=== PATIENT | female | born 1990 | race Caucasian/White ===

== ENCOUNTER 2016-08-13 13:23 | Emergency (ER) | payer SELFPAY ==
[2016-08-13] MEDS ORDERED: Sodium Chloride 0.9% 1,000 ML IV ONE (14:11)
--- NOTE | 2016-08-13 14:12 | EDM.PDOC ---
ED HPI GENERAL MEDICAL PROBLEM - General Chief Complaint: COMMUNITY MARKETING MANAGER Problem Stated Complaint: CRAMPS Time Seen by Provider: 08/13/16 14:09 Source of Information: Reports: Patient History Limitations: Reports: No limitations - History of Present Illness INITIAL COMMENTS - FREE TEXT/NARRATIVE: History of present illness: [26-year-old female comes in complaining of abdominal cramping and excessive vaginal bleeding she is unable to indicate whether she is certain of any potential or if this is just an unusually large and painful menstrual cycle. Patient indicates she did have pelvic last month and has been bleeding since but she she received no results from her pelvic either by phone or in the mail she indicates.] Review of systems: As per history of present illness and below otherwise all systems reviewed and negative. Past medical history: As per history of present illness and as reviewed below otherwise noncontributory. Surgical history: As per history of present illness and as reviewed below otherwise noncontributory. Social history: No reported history of drug or alcohol abuse. Family history: As per history of present illness and as reviewed below otherwise noncontributory. Physical exam: HEENT: Atraumatic, normocephalic, pupils reactive, negative for conjunctival pallor or scleral icterus, mucous membranes moist, throat clear, neck supple, nontender, trachea midline. Lungs: Clear to auscultation, breath sounds equal bilaterally, chest nontender. Heart: S1S2, regular, negative for clicks, rubs, or JVD. Abdomen: Soft, nondistended, nontender. Negative for masses or hepatosplenomegaly. Negative for costovertebral tenderness. Pelvis: Stable nontender. Genitourinary: Deferred. Rectal: Deferred. Extremities: Atraumatic, negative for cords or calf pain. Neurovascular unremarkable. Neuro: Awake, alert, oriented. Cranial nerves II through XII unremarkable. Cerebellum unremarkable. Motor and sensory unremarkable throughout. Exam nonfocal. Diagnostics: [CBC, CMP, hCG] Therapeutics: [IV fluid, ] Impression: [dysfunctional uterine bleeding] Plan: [followup with COMMUNITY MARKETING MANAGER] Definitive disposition and diagnosis as appropriate pending reevaluation and review of above. 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 Social & Family History - Family History Family Medical History: Noncontributory - Tobacco Use Smoking Status *Q: Current Every Day Smoker Years of Tobacco use: 2 Packs/Tins Daily: 0.5 - Caffeine Use Caffeine Use: Reports: None - Recreational Drug Use Recreational Drug Use: No ED ROS GENERAL - Review of Systems Review Of Systems: See Below (See history of present illness) ED EXAM, GENERAL - Physical Exam Exam: See Below Course - Vital Signs Last Recorded V/S: Last Vital Signs Temp Pulse 76 08/13/16 16:36 Resp 16 08/13/16 16:36 BP 133/75 08/13/16 16:36 Pulse Ox 100 08/13/16 16:36 - Orders/Labs/Meds Labs: Laboratory Tests 08/13/16 08/13/16 08/13/16 Range/Units 14:12 14:12 14:12 WBC 8.40 (4.0-11.0) K/uL RBC 4.50 (4.30-5.90) M/uL Hgb 13.1 (12.0-16.0) g/dL Hct 39.5 (36.0-46.0) % MCV 87.8 (80.0-98.0) fL MCH 29.1 (27.0-32.0) pg MCHC 33.2 (31.0-37.0) g/dL RDW Std Deviation 42.2 (28.0-62.0) fl RDW Coeff of Carmen 13 (11.0-15.0) % Plt Count 263 (150-400) K/uL MPV 9.30 (7.40-12.00) fL Neut % (Auto) 79.4 (48.0-80.0) % Lymph % (Auto) 11.7 L (16.0-40.0) % [place] % (Auto) 6.7 (0.0-15.0) % Eos % (Auto) 1.1 (0.0-7.0) % Baso % (Auto) 1.1 (0.0-1.5) % Neut # (Auto) 6.7 H (1.4-5.7) K/uL Lymph # (Auto) 1.0 (0.6-2.4) K/uL [place] # (Auto) 0.6 (0.0-0.8) K/uL Eos # (Auto) 0.1 (0.0-0.7) K/uL Baso # (Auto) 0.1 (0.0-0.1) K/uL Nucleated RBC % 0.0 /100WBC Nucleated RBCs # 0 K/uL Free T4 0.90 (0.7-1.48) ng/dL Thyroxine (T4) 5.90 (4.87-11.72) ug/dL TSH 3rd Generation 0.72 (0.47-5.0) uIU/mL HCG, Quant < 1.2 mIU/mL Urine Color Urine Appearance Urine pH (5.0-8.0) Ur Specific [place] (1.001-1.035) Urine Protein (NEGATIVE) mg/dL Urine Glucose (UA) (NEGATIVE) mg/dL Urine Ketones (NEGATIVE) mg/dL Urine Occult Blood (NEGATIVE) Urine Nitrite (NEGATIVE) Urine Bilirubin (NEGATIVE) Urine Urobilinogen (<2.0) EU/dL Ur Leukocyte Esterase (NEGATIVE) Urine RBC (0-2/HPF) Urine WBC (0-5/HPF) Ur Epithelial Cells (NONE-FEW) Urine Bacteria (NEGATIVE) 08/13/16 Range/Units 14:42 WBC (4.0-11.0) K/uL RBC (4.30-5.90) M/uL Hgb (12.0-16.0) g/dL Hct (36.0-46.0) % MCV (80.0-98.0) fL MCH (27.0-32.0) pg MCHC (31.0-37.0) g/dL RDW Std Deviation (28.0-62.0) fl RDW Coeff of Carmen (11.0-15.0) % Plt Count (150-400) K/uL MPV (7.40-12.00) fL Neut % (Auto) (48.0-80.0) % Lymph % (Auto) (16.0-40.0) % [place] % (Auto) (0.0-15.0) % Eos % (Auto) (0.0-7.0) % Baso % (Auto) (0.0-1.5) % Neut # (Auto) (1.4-5.7) K/uL Lymph # (Auto) (0.6-2.4) K/uL [place] # (Auto) (0.0-0.8) K/uL Eos # (Auto) (0.0-0.7) K/uL Baso # (Auto) (0.0-0.1) K/uL Nucleated RBC % /100WBC Nucleated RBCs # K/uL Free T4 (0.7-1.48) ng/dL Thyroxine (T4) (4.87-11.72) ug/dL TSH 3rd Generation (0.47-5.0) uIU/mL HCG, Quant mIU/mL Urine Color YELLOW Urine Appearance SLT CLOUDY Urine pH 6.5 (5.0-8.0) Ur Specific [place] 1.020 (1.001-1.035) Urine Protein NEGATIVE (NEGATIVE) mg/dL Urine Glucose (UA) NEGATIVE (NEGATIVE) mg/dL Urine Ketones NEGATIVE (NEGATIVE) mg/dL Urine Occult Blood LARGE H (NEGATIVE) Urine Nitrite NEGATIVE (NEGATIVE) Urine Bilirubin NEGATIVE (NEGATIVE) Urine Urobilinogen 0.2 (<2.0) EU/dL Ur Leukocyte Esterase NEGATIVE (NEGATIVE) Urine RBC 50-60 (0-2/HPF) Urine WBC 0-2 (0-5/HPF) Ur Epithelial Cells FEW (NONE-FEW) Urine Bacteria FEW (NEGATIVE) Meds: Medications Discontinued Medications Generic Name Dose Route Start Last Admin Trade Name Freq PRN Reason Stop Dose Admin Sodium Chloride 1,000 mls @ 999 mls/hr 08/13/16 14:11 08/13/16 14:23 Normal Saline IV 08/13/16 15:11 999 mls/hr STAT ONE Administration Ketorolac Tromethamine 30 mg 08/13/16 15:53 08/13/16 15:58 Toradol IVPUSH 08/13/16 15:54 30 mg ONETIME ONE Administration Morphine Sulfate 2 mg 08/13/16 16:27 08/13/16 16:33 Morphine IV 08/13/16 16:28 2 mg ONETIME ONE Administration Ondansetron HCl 8 mg 08/13/16 15:53 08/13/16 16:00 Zofran IVPUSH 08/13/16 15:54 8 mg ONETIME ONE Administration Departure - Departure Time of Disposition: 17:45 Disposition: Home, Self-Care 01 Condition: good Clinical Impression: Uterine bleeding, dysfunctional Forms: ED Department Discharge Additional Instructions: The following information is given to patients seen in the emergency department who are being discharged to home. This information is to outline your options for follow-up care. We provide all patients seen in our emergency department with a follow-up referral. The need for follow-up, as well as the timing and circumstances, are variable depending upon the specifics of your emergency department visit. If you don't have a primary care physician on staff, we will provide you with a referral. We always advise you to contact your personal physician following an emergency department visit to inform them of the circumstance of the visit and for follow-up with them and/or the need for any referrals to a consulting specialist. The emergency department will also refer you to a specialist when appropriate. This referral assures that you have the opportunity for follow-up care with a specialist. All of these measure are taken in an effort to provide you with optimal care, which includes your follow-up. Under all circumstances we always encourage you to contact your private physician who remains a resource for coordinating your care. When calling for follow-up care, please make the office aware that this follow-up is from your recent emergency room visit. If for any reason you are refused follow-up, please contact the [facility] Emergency Department at and asked to speak to the emergency department charge nurse. to be given the brief run of pain medicine to help you through this cycle It is important to followup with COMMUNITY MARKETING MANAGER to help regulate your flow and to monitor any sort of cycling and or attempt at Followup with ED as needed as discussed
[2016-08-13] MEDS ORDERED: Ondansetron 4 MG/2 ML SDV IVPUSH ONE (15:53)
[2016-08-13] MEDS ORDERED: Ketorolac 30 MG/ML SDV IVPUSH ONE (15:53)
[2016-08-13] MEDS ORDERED: Morphine 10 MG/ML Syringe IV ONE (16:27)
--- NOTE | 2016-08-13 17:07 | US ---
EXAM DATE: 08/13/16 PATIENT'S AGE: 26 Patient: LETICIA CANTOR Facility: [place], [place] Site . Site : 1990 Study: US Pelvis [id number]/[id number] 4:41:22 PM Ordering Physician: Doctor Martin Final Report: INDICATION: Pelvic pain. Dysfunctional bleeding. TECHNIQUE: Ultrasound pelvis transvaginal for better assessment or to better visualize the endometrium. Real-time sonographic images with spectral and color Doppler imaging of the ovaries were obtained. COMPARISON: None. FINDINGS: Uterus measures 7 x 4.4 x 3.3 cm. Uterus is homogeneous in echotexture. Endometrial stripe measures 3 mm. No evidence of endometrial mass or fluid. Right ovary is 2.2 x 2.5 x 2 cm and is within normal limits. Normal-appearing color Doppler flow in the right ovary. Left ovary is 2.6 x 1.4 x 2.3 cm and is within normal limits. Normal-appearing color Doppler flow in the left ovary. Trace pelvic free fluid. IMPRESSION: Unremarkable pelvic ultrasound. Dictated by Elvis Rob MD @ 08/13/2016 4:51:55 PM Dictated by: Elvis Rob MD @ 08/13/2016 16:52:06 (Electronic Signature) Report Signed by Proxy. ANTHONY
[2016-08-13 18:15] VITALS: BP 121/83
== END 2016-08-13 17:49 | disposition home or self-care (01) ==
LOC: MW.ED 13:23
DX: N93.8 Other specified abnormal uterine and vaginal bleeding (principal); E03.9 Hypothyroidism, unspecified; F17.210 Nicotine dependence, cigarettes, uncomplicated; Z98.890 Other specified postprocedural states
CPT/HCPCS: 36415; 76830; 81001; 84436; 84439; 84443; 84702; 85025; 96361; 96374; 96375; 99284; J1885; J2270; J2405; J7040

== ENCOUNTER 2017-06-20 12:32 | Inpatient (IN) | payer BC, MEDICAID ==
--- NOTE | 2017-06-20 13:35 | PCM.LDHP ---
L&D History of Present Illness - General Date of Service: 06/20/17 Admit Problem/Dx: Admission Diagnosis/Problem Admission Diagnosis/Problem 06/20/17 13:33 27yo EDC 06/18/2017 40 2/7 wks, IOL for post dates. A+, RI, GBS neg Source of Information: Patient History Limitations: Reports: No Limitations - History of Present Illness Improves with: Reports: None Worsens with: Reports: None Associated Symptoms: Reports: N - Related Data Allergies/Adverse Reactions: Allergies Allergy/AdvReac Type Severity Reaction Status Date / Time No Known Allergies Allergy Verified 08/13/16 13:45 Home Medications: Home Meds Levothyroxine 125 mcg PO ACBREAKFAST 05/26/15 [History] Past Medical History - Past Health History Medical/Surgical History: Denies Medical/Surgical History Endocrine/Metabolic History: Reports: Hypothyroidism - Infectious Disease History Infectious Disease History: Reports: Chicken Pox - Past Surgical History Female Surgical History: Reports: Other (See Below) Social & Family History - Family History Family Medical History: Noncontributory - Tobacco Use Smoking Status *Q: Current Every Day Smoker Years of Tobacco use: 2 Packs/Tins Daily: 0.5 - Caffeine Use Caffeine Use: Reports: None - Recreational Drug Use Recreational Drug Use: No H&P Review of Systems - Review of Systems: Review Of Systems: See Below General: Reports: No Symptoms HEENT: Reports: No Symptoms Pulmonary: Reports: No Symptoms Cardiovascular: Reports: No Symptoms Gastrointestinal: Reports: No Symptoms Genitourinary: Reports: No Symptoms Musculoskeletal: Reports: No Symptoms Skin: Reports: No Symptoms Psychiatric: Reports: No Symptoms Neurological: Reports: No Symptoms Hematologic/Lymphatic: Reports: No Symptoms Immunologic: Reports: No Symptoms L&D Exam - Exam Exam: See Below - Vital Signs Weight: 102.512 kg - OB Specific Contraction Intensity: Mild to Moderate Movement: Active Heart Tones: Present Heart Tones per Min: 145 Heart Rate (FHR) Variability: Moderate (6-25 bmp) Presentation: Vertex - Rivera Score Rivera Score Cervix Position: Posterior Rivera Score Consistency: Soft Rivera Score Effacement: >80% Rivera Score Dilation: 1-2 cm Rivera Score 's Station: -3 Rievra Score Total: 6 - Exam General: Alert, Oriented, Cooperative HEENT: Hearing Intact Lungs: Clear to Auscultation Cardiovascular: Regular Rate, Regular Rhythm, Normal S1, Normal S2 GI/Abdominal Exam: Soft, Non-Tender (gravid) Rectal Exam: Deferred Genitourinary: Cervical dilitation Back Exam: Full Range of Motion Extremities: Normal Range of Motion, Non-Tender, No Pedal Edema, Normal Capillary Refill Skin: Warm, Dry, Intact Neurological: Reflexes Equal Bilateral, Normal Speech, Normal Tone Psychiatric: Alert, Normal Affect, Normal Mood - Problem List (1) Supervision of normal IUP (intrauterine ) in primigravida SNOMED Code(s): 04771909, 565292581, 534427173 ICD Code: Z34.00 - ENCNTR FOR SUPRVSN OF NORMAL FIRST , UNSP TRIMESTER Status: Acute Current Visit: Yes Qualifiers: Trimester: third trimester Qualified Code(s): Z34.03 - Encounter for supervision of normal first , third trimester Problem List Initiated/Reviewed/Updated: Yes Assessment/Plan Comment:: A: 27yo EDC 06/18/2017 40 2/7 wks, IOL for post dates. A+, RI, GBS neg. / -3 post spotting and possible SROM P: Admit, amnisure to check for SROM, Cytotec to pitocin, epidrual prn, anticipate , Dr Ames updated
[2017-06-20] MEDS ORDERED: Sodium Chloride 0.9% 2.5 ML Syringe FLUSH PRN (14:50)
[2017-06-20] MEDS ORDERED: Misoprostol 200 MCG Tab PO PRN (14:50)
[2017-06-20] MEDS ORDERED: Nalbuphine 10 MG/1 ML Vial IVPUSH PRN (14:50)
[2017-06-20] MEDS ORDERED: Water For Irrigation,Sterile 1,000 ML Container IRR PRN (14:50)
[2017-06-20] MEDS ORDERED: Sodium Chloride 0.9% 10 ML Syringe FLUSH PRN (14:50)
[2017-06-20] MEDS ORDERED: Methylergonovine 0.2 MG/1 ML Amp IM PRN (14:50)
[2017-06-20] MEDS ORDERED: Carboprost Tromethamine 250 MCG/1 ML Amp IM PRN (14:50)
[2017-06-20] MEDS ORDERED: Tranexamic Acid 1,000 MG in Sodium Chloride 0.9% 100 ML IV PRN (14:50)
[2017-06-20] MEDS ORDERED: Lidocaine 1% 50 ML MDV INJECT PRN (14:50)
[2017-06-20] MEDS ORDERED: Misoprostol 25 MCG (1/4 of 100 MCG) Tab VAG PRN (14:57)
[2017-06-20] MEDS ORDERED: Terbutaline 1 MG/ML SDV SUBCUT PRN (14:57)
[2017-06-20] MEDS ORDERED: Misoprostol 25 MCG (1/4 of 100 MCG) Tab VAG SCH (15:00)
[2017-06-20] MEDS ORDERED: Oxytocin/0.9 % Sodium Chloride 30 UNIT/500 ML BAG IV SCH ×2 (15:00)
[2017-06-20] MEDS ORDERED: Misoprostol 25 MCG (1/4 of 100 MCG) Tab PO SCH (15:00)
[2017-06-20] MEDS: Lactated Ringers 1,000 ML IV SCH ×2 (20:18→21:06)
--- NOTE | 2017-06-20 21:05 | PCM.PREANE ---
Preanesthetic Assessment - Anesthesia/Transfusion/Family Hx Anesthesia History: No Prior Anesthesia Family History of Anesthesia Reaction: No Transfusion History: No Prior Transfusion(s) - Review of Systems General: No Symptoms Pulmonary: No Symptoms Cardiovascular: No Symptoms Gastrointestinal: No Symptoms Neurological: No Symptoms Other: Reports: None - Physical Assessment Height: 5 ft 8.5 in Weight: 102.512 kg ASA Class: 2 Mental Status: Alert & Oriented x3 Airway Class: Mallampati = 2 Dentition: Reports: Normal Dentition Thyro-Mental Finger Breadths: 3 Mouth Opening Finger Breadths: 3 ROM/Head Extension: Full Lungs: Clear to Auscultation, Normal Respiratory Effort Cardiovascular: Regular Rate, Regular Rhythm - Lab Values: Laboratory Last Values WBC 8.17 K/uL (4.0-11.0) 06/20/17 15:05 RBC 4.23 M/uL (4.30-5.90) L 06/20/17 15:05 Hgb 11.9 g/dL (12.0-16.0) L 06/20/17 15:05 Hct 35.1 % (36.0-46.0) L 06/20/17 15:05 MCV 83.0 fL (80.0-98.0) 06/20/17 15:05 MCH 28.1 pg (27.0-32.0) 06/20/17 15:05 MCHC 33.9 g/dL (31.0-37.0) 06/20/17 15:05 RDW Std Deviation 43.0 fl (28.0-62.0) 06/20/17 15:05 RDW Coeff of Carmen 14 % (11.0-15.0) 06/20/17 15:05 Plt Count 233 K/uL (150-400) 06/20/17 15:05 MPV 9.10 fL (7.40-12.00) 06/20/17 15:05 Nucleated RBC % 0.0 /100WBC 06/20/17 15:05 Nucleated RBCs # 0 K/uL 06/20/17 15:05 Membrane Rupture NEGATIVE 06/20/17 13:00 Blood Type A POSITIVE 06/20/17 15:05 Antibody Screen NEGATIVE 06/20/17 15:05 - Allergies Allergies/Adverse Reactions: Allergies Allergy/AdvReac Type Severity Reaction Status Date / Time No Known Allergies Allergy Verified 08/13/16 13:45 - Blood Blood Available: Yes - Acknowledgements Anesthesia Type Planned: Epidural Pt an Appropriate Candidate for the Planned Anesthesia: Yes Alternatives and Risks of Anesthesia Discussed w Pt/Guardian: Yes Pt/Guardian Understands and Agrees with Anesthesia Plan: Yes PreAnesthesia Questionnaire - Past Health History Medical/Surgical History: Denies Medical/Surgical History HEENT History: Reports: None Cardiovascular History: Reports: None Respiratory History: Reports: None Gastrointestinal History: Reports: GERD Genitourinary History: Reports: None INTEGRATED LOGISTICS SUPPORT MANAGER History: Reports: : 1 Para: 0 LMP (Approximate): Musculoskeletal History: Reports: None Neurological History: Reports: None Psychiatric History: Reports: None Endocrine/Metabolic History: Reports: Hypothyroidism, Obesity/BMI 30+ Hematologic History: Reports: None Immunologic History: Reports: None Oncologic (Cancer) History: Reports: None Dermatologic History: Reports: None - Infectious Disease History Infectious Disease History: Reports: Chicken Pox - Past Surgical History Female Surgical History: Reports: Other (See Below) - Past Imaging History Past Imaging History: Reports: None - SUBSTANCE USE Smoking Status *Q: Current Every Day Smoker Tobacco Use Within Last Twelve Months: Cigarettes Recreational Drug Use History: No - HOME MEDS Home Medications: Home Meds Levothyroxine 125 mcg PO ACBREAKFAST 05/26/15 [History] - CURRENT (IN HOUSE) MEDS Current Meds: Current Medications Carboprost Tromethamine (Hemabate Ds) 250 mcg IM ASDIRECTED PRN PRN Reason: Post Hemorrhage Tranexamic Acid 1,000 mg/ (Sodium Chloride) 110 mls @ 660 mls/hr IV ONETIME PRN PRN Reason: Bleeding Lactated Ringer's (Ringers, Lactated) 1,000 mls @ 150 mls/hr IV ASDIRECTED KADE Last Admin: 06/20/17 20:18 Dose: 150 mls/hr Oxytocin/Sodium Chloride (Oxytocin 30 Unit/500 Ml-Ns) 30 unit in 500 mls @ 999 mls/hr IV TITRATE KADE Oxytocin/Sodium Chloride (Oxytocin 30 Unit/500 Ml-Ns) 30 unit in 500 mls @ 2 mls/hr IV TITRATE KADE; 2 MUNITS/MIN PRN Reason: Protocol Last Admin: 06/20/17 20:18 Dose: 2 munits/min, 2 mls/hr Lidocaine HCl (Xylocaine 1%) 50 ml INJECT .ONCE PRN PRN Reason: Laceration repair Methylergonovine Maleate (Methergine) 0.2 mg IM ASDIRECTED PRN PRN Reason: Post Hemorrhage Misoprostol (Cytotec) 200 mcg PO .ONCE PRN PRN Reason: Post Hemorrhage Misoprostol (Cytotec) 25 mcg PO Q4H KADE Last Admin: 06/20/17 15:30 Dose: 25 mcg Misoprostol (Cytotec) 25 mcg VAG .ONCE KADE Last Admin: 06/20/17 15:30 Dose: 25 mcg Misoprostol (Cytotec) 25 mcg VAG Q4H PRN PRN Reason: Cervical Ripening Nalbuphine HCl (Nubain) 10 mg IVPUSH Q1H PRN PRN Reason: Pain (severe 7-10) Last Admin: 06/20/17 19:53 Dose: 10 mg Sodium Chloride (Saline Flush) 10 ml FLUSH ASDIRECTED PRN PRN Reason: Keep Vein Open Sodium Chloride (Saline Flush) 2.5 ml FLUSH ASDIRECTED PRN PRN Reason: Keep Vein Open Sterile Water (Sterile Water For Irrigation) 1,000 ml IRR ASDIRECTED PRN PRN Reason: delivery Terbutaline Sulfate (Brethine) 0.25 mg SUBCUT ASDIRECTED PRN PRN Reason: Tacysystole
[2017-06-21] MEDS ORDERED: Ondansetron 4 MG/2 ML SDV IVPUSH PRN (03:30)
[2017-06-21] MEDS ORDERED: Ondansetron 4 MG/2 ML SDV ONE (03:33)
[2017-06-21] MEDS ORDERED: Oxytocin 10 Units/1 ML SDV ONE (03:52)
[2017-06-21] MEDS ORDERED: Ibuprofen 400 MG Tab PO PRN (04:27)
[2017-06-21] MEDS ORDERED: Bisacodyl 10 MG Supp RECTAL PRN (04:27)
[2017-06-21] MEDS ORDERED: Lanolin 100% Cream 7 GM Tube TOP PRN (04:27)
[2017-06-21] MEDS ORDERED: Docusate Sodium 100 MG Cap PO PRN (04:27)
[2017-06-21] MEDS ORDERED: Witch Hazel Medicated Pads 40/Jar TOP PRN (04:27)
[2017-06-21] MEDS ORDERED: oxyCODONE 5 MG Tab PO PRN (04:27)
[2017-06-21] MEDS ORDERED: Acetaminophen 500 MG Tab PO PRN (04:27)
[2017-06-21] MEDS ORDERED: Benzocaine/Menthol 20%-0.5% Spray 78 GM Cannister TOP PRN (04:27)
--- NOTE | 2017-06-21 04:45 | PCM.DEL ---
L & D Note - General Info Date of Service: 06/21/17 Mother's Due Date: 06/18/17 - Delivery Note Labor: Spontaneous Cervical Ripening Method: Misoprostil, Oxytocin Delivery Outcome: Livebirth Infant Delivery Method: Spontaneous Vaginal Delivery-Single Presentation: Vertex Nuchal Cord: Present Anesthesia Type: Epidural Amniotic Fluid Description: Meconium Stained Episiotomy Type: None Laceration: Labial (upper right labial lac, repaired with 4-0 mono) Suture type: Other Suture size: 4-0 Placenta: Intact, Spontaneous Cord: 3 Vessels Estimated Blood Loss: 100 Resuscitation Needed: No [place]: Suctioned, Bulb Syringe, Stimulated (O2 blow by), Warmer Used Score 1 min: 7 Score 5 min: 8 Second Stage Interventions: Reports: Pushing, Pulls Own Legs Back Delivery Comments (Free Text/Narrative):: viable female over intact perineum. Head delivered with great pushing, nuchle x1 reduced over head, shoulders and body followed easily. Infant to mothers abdomen with RN at for evaluation. Cord clamped and cut and infant to the warmer. spont cry, pink. Pitocin to IVF, Cord blood collected. Placenta delivered grossly intact. Bimanual WNL, Inspection noted right side labial lac that was repaired with a 4-0 mono. EBL 100cc, APGARS 7/8, Wt: 8lb 4oz , mom and baby left in stable condition for recovery Induction Criteria - Rivera Score Rivera Score Dilation: 1-2 cm Rivera Score Effacement: >80% Rivera Score 's Station: -3 Rivera Score Consistency: Soft Rivera Score Cervix Position: Posterior Rivera Score Total: 6 Rivera Score Presenting Part: Reports: Cephalic - Induction Gestational Age >/= 39 wks: Yes Medical Indication: post dates Estimated Pelvis: Reports: Adequate Reassuring Monitoring Strip: Yes Absence of Tachy Systole: Yes - General Info Admission Dx/Problem (Free Text): Admission Diagnosis/Problem Admission Diagnosis/Problem 06/20/17 13:33 27yo EDC 06/18/2017 40 2/7 wks, IOL for post dates. A+, RI, GBS neg Functional Status: Reports: Pain Controlled - Review of Systems General: Reports: No Symptoms HEENT: Reports: No Symptoms Pulmonary: Reports: No Symptoms Cardiovascular: Reports: No Symptoms Gastrointestinal: Reports: No Symptoms Genitourinary: Reports: No Symptoms Musculoskeletal: Reports: No Symptoms Skin: Reports: No Symptoms Neurological: Reports: No Symptoms Psychiatric: Reports: No Symptoms - Patient Data Weight - Most Recent: 102.512 kg Lab Results Last 24 Hours: Laboratory Results - last 24 hr 06/20/17 06/20/17 06/20/17 Range/Units 13:00 15:05 15:05 WBC 8.17 (4.0-11.0) K/uL RBC 4.23 L (4.30-5.90) M/uL Hgb 11.9 L (12.0-16.0) g/dL Hct 35.1 L (36.0-46.0) % MCV 83.0 (80.0-98.0) fL MCH 28.1 (27.0-32.0) pg MCHC 33.9 (31.0-37.0) g/dL RDW Std Deviation 43.0 (28.0-62.0) fl RDW Coeff of Carmen 14 (11.0-15.0) % Plt Count 233 (150-400) K/uL MPV 9.10 (7.40-12.00) fL Nucleated RBC % 0.0 /100WBC Nucleated RBCs # 0 K/uL Membrane Rupture NEGATIVE Blood Type A POSITIVE Antibody Screen NEGATIVE Med Orders - Current: Current Medications Acetaminophen (Tylenol Extra Strength) 500 mg PO Q4H PRN PRN Reason: Pain Acetaminophen (Tylenol Extra Strength) 1,000 mg PO Q4H PRN PRN Reason: Pain Benzocaine/Menthol (Dermoplast Pain Relief 20%-0.5% [place]) 78 gm TOP ASDIRECTED PRN PRN Reason: Perineal Comfort Measure Bisacodyl (Dulcolax) 10 mg RECTAL .ONCE PRN PRN Reason: Constipation Docusate Sodium (Colace) 100 mg PO BID PRN PRN Reason: Constipation Emollient Ointment (Lansinoh Hpa) 0 gm TOP ASDIRECTED PRN PRN Reason: Sore Nipples Ibuprofen (Motrin) 400 mg PO Q4H PRN PRN Reason: Pain Ibuprofen (Motrin) 800 mg PO Q6H PRN PRN Reason: Pain Oxycodone HCl (Oxycodone) 5 mg PO Q2H PRN PRN Reason: Pain Witch Yodit (Tucks) 1 pad TOP ASDIRECTED PRN PRN Reason: comfort care Discontinued Medications Carboprost Tromethamine (Hemabate Ds) 250 mcg IM ASDIRECTED PRN PRN Reason: Post Hemorrhage Tranexamic Acid 1,000 mg/ (Sodium Chloride) 110 mls @ 660 mls/hr IV ONETIME PRN PRN Reason: Bleeding Lactated Ringer's (Ringers, Lactated) 1,000 mls @ 150 mls/hr IV ASDIRECTED KADE Last Admin: 06/20/17 21:06 Dose: 999 mls/hr Oxytocin/Sodium Chloride (Oxytocin 30 Unit/500 Ml-Ns) 30 unit in 500 mls @ 999 mls/hr IV TITRATE KADE Oxytocin/Sodium Chloride (Oxytocin 30 Unit/500 Ml-Ns) 30 unit in 500 mls @ 2 mls/hr IV TITRATE KADE; 2 MUNITS/MIN PRN Reason: Protocol Last Titration: 06/20/17 22:22 Dose: 0 munits/min, 0 mls/hr Fentanyl/Bupivacaine HCl (Dsnjbmuk-Nvoqz-Yg 2 Mcg/Ml-0.125%) Confirm Administered Dose 100 mls @ as directed EP .STK-MED ONE Stop: 06/20/17 21:07 Fentanyl/Bupivacaine HCl (Itxkazbn-Rvzlz-Nw 2 Mcg/Ml-0.125%) Confirm Administered Dose 100 mls @ as directed EP .STK-MED ONE Stop: 06/21/17 03:22 Lidocaine HCl (Xylocaine 1%) 50 ml INJECT .ONCE PRN PRN Reason: Laceration repair Methylergonovine Maleate (Methergine) 0.2 mg IM ASDIRECTED PRN PRN Reason: Post Hemorrhage Misoprostol (Cytotec) 200 mcg PO .ONCE PRN PRN Reason: Post Hemorrhage Misoprostol (Cytotec) 25 mcg PO Q4H KADE Last Admin: 06/20/17 15:30 Dose: 25 mcg Misoprostol (Cytotec) 25 mcg VAG .ONCE KADE Last Admin: 06/20/17 15:30 Dose: 25 mcg Misoprostol (Cytotec) 25 mcg VAG Q4H PRN PRN Reason: Cervical Ripening Nalbuphine HCl (Nubain) 10 mg IVPUSH Q1H PRN PRN Reason: Pain (severe 7-10) Last Admin: 06/20/17 19:53 Dose: 10 mg Ondansetron HCl (Zofran) 4 mg IVPUSH Q4H PRN PRN Reason: Nausea Ondansetron HCl (Zofran) Confirm Administered Dose 4 mg .ROUTE .STK-MED ONE Stop: 06/21/17 03:34 Oxytocin (Pitocin) Confirm Administered Dose 30 unit .ROUTE .STK-MED ONE Stop: 06/21/17 03:53 Sodium Chloride (Saline Flush) 10 ml FLUSH ASDIRECTED PRN PRN Reason: Keep Vein Open Sodium Chloride (Saline Flush) 2.5 ml FLUSH ASDIRECTED PRN PRN Reason: Keep Vein Open Sterile Water (Sterile Water For Irrigation) 1,000 ml IRR ASDIRECTED PRN PRN Reason: delivery Terbutaline Sulfate (Brethine) 0.25 mg SUBCUT ASDIRECTED PRN PRN Reason: Tacysystole - Exam General: Alert, Oriented, Cooperative, No Acute Distress Lungs: Normal Respiratory Effort GI/Abdominal Exam: Soft, Non-Tender (Female) Exam: Normal External Exam, Normal Bimanual Exam, Vaginal Bleeding, Vaginal Tears Back Exam: Full Range of Motion Extremities: Normal Range of Motion, Non-Tender, No Pedal Edema, Normal Capillary Refill Skin: Warm, Dry, Intact Wound/Incisions: Healing Well Neurological: No New Focal Deficit, Normal Speech, Normal Tone Psy/Mental Status: Alert, Normal Affect, Normal Mood - Problem List & Annotations (1) Supervision of normal IUP (intrauterine ) in primigravida SNOMED Code(s): 38356822, 031359967, 949789120 Code(s): Z34.00 - ENCNTR FOR SUPRVSN OF NORMAL FIRST , UNSP TRIMESTER Status: Acute Current Visit: Yes Qualifiers: Trimester: third trimester Qualified Code(s): Z34.03 - Encounter for supervision of normal first , third trimester (2) (normal spontaneous vaginal delivery) SNOMED Code(s): 16777986 Code(s): O80 - ENCOUNTER FOR FULL-TERM UNCOMPLICATED DELIVERY Status: Acute Priority: High Current Visit: Yes - Problem List Review Problem List Initiated/Reviewed/Updated: Yes - My Orders Last 24 Hours: My Active Orders 06/20/17 14:50 Heart Tones [RC] CONTINUOUS Non Stress Test [RC] PER UNIT ROUTINE Vaginal Exam [RC] PRN Vital Signs [RC] PER UNIT ROUTINE 06/20/17 15:04 Oxygen Therapy [RC] ASDIRECTED Vaginal Exam [RC] PRN Vital Signs [RC] PER UNIT ROUTINE 06/21/17 04:27 May Shower [RC] ASDIRECTED Up ad Ciara [RC] ASDIRECTED Vital Signs [RC] PER UNIT ROUTINE Acetaminophen [Tylenol Extra Strength] 1,000 mg PO Q4H PRN Acetaminophen [Tylenol Extra Strength] 500 mg PO Q4H PRN Benzocaine/Menthol [Dermoplast Pain Relief 20%-0.5% [place]] 78 gm TOP ASDIRECTED PRN Bisacodyl [Dulcolax] 10 mg RECTAL .ONCE PRN Docusate Sodium [Colace] 100 mg PO BID PRN Ibuprofen [Motrin] 400 mg PO Q4H PRN Ibuprofen [Motrin] 800 mg PO Q6H PRN Lanolin [Lansinoh HPA] See Dose Instructions TOP ASDIRECTED PRN Witch Yodit [Tucks] 1 pad TOP ASDIRECTED PRN oxyCODONE 5 mg PO Q2H PRN Assess Lochia [WOMSER] Per Unit Routine Assess Uterine Involution [WOMSER] Per Unit Routine Peripheral IV Discontinue [OM.PC] Routine Resuscitation Status Routine 06/21/17 04:28 Patient Status [ADT] Routine 06/21/17 Breakfast Regular Diet [DIET] - Plan Plan:: A: 27yo EDC 06/18/2017 40 2/7 wks, IOL for post dates. A+, RI, GBS neg. / -3 post spotting and possible SROM P: Admit, amnisure to check for SROM, Cytotec to pitocin, epidrual prn, anticipate , Dr Ames updated Delivered A: of viable female, APGARS 7/8, Wt: 8lb 4oz, EBL 100cc, Rt lab lac with repair. Mother and baby bonding well. P: Routine pp plan of care.
--- NOTE | 2017-06-21 09:06 | PCM48HPAN ---
Post Anesthesia Note - EVALUATION WITHIN 48HRS OF ANESTHETIC Vital Signs in Normal Range: Yes Patient Participated in Evaluation: Yes Respiratory Function Stable: Yes Airway Patent: Yes Cardiovascular Function Stable: Yes Hydration Status Stable: Yes Pain Control Satisfactory: Yes Nausea and Vomiting Control Satisfactory: Yes Mental Status Recovered: Yes Resp Rate: 18
[2017-06-21] MEDS: Ibuprofen 800 MG Tab PO PRN ×2 (10:19→16:00)
[2017-06-21] MEDS: Acetaminophen 500 MG Tab PO PRN (15:06)
[2017-06-22] MEDS: Ibuprofen 800 MG Tab PO PRN ×2 (02:52→09:47)
--- NOTE | 2017-06-22 08:29 | PCM.DCSUM1 ---
Discharge Summary - Hospital Course Free Text/Narrative:: Discharge home with infant. Follow up in 6 weeks or sooner if needed. - Discharge Data Discharge Date: 06/22/17 Discharge Disposition: Home, Self-Care 01 Condition: Good - Discharge Diagnosis/Problem(s) (1) Supervision of normal IUP (intrauterine ) in primigravida SNOMED Code(s): 04063970, 608431546, 311768579 ICD Code: Z34.00 - ENCNTR FOR SUPRVSN OF NORMAL FIRST , UNSP TRIMESTER Status: Acute Current Visit: Yes Qualifiers: Trimester: third trimester Qualified Code(s): Z34.03 - Encounter for supervision of normal first , third trimester (2) (normal spontaneous vaginal delivery) SNOMED Code(s): 48533962 ICD Code: O80 - ENCOUNTER FOR FULL-TERM UNCOMPLICATED DELIVERY Status: Acute Priority: High Current Visit: Yes - Patient Instructions Diet: Usual Diet as Tolerated Activity: As Tolerated, No Strenuous Activities, Rest and Relax Today Driving: May Drive Today Showering/Bathing: May Shower Notify Provider of: Fever, Increased Pain, Swelling and Redness, Nausea and/or Vomiting - Discharge Plan Home Medications: Home Meds Levothyroxine 125 mcg PO ACBREAKFAST 05/26/15 [History] - General Info Date of Service: 06/22/17 Admission Dx/Problem (Free Text: Admission Diagnosis/Problem Admission Diagnosis/Problem 06/20/17 13:33 27yo EDC 06/18/2017 40 2/7 wks, IOL for post dates. A+, RI, GBS neg Functional Status: Reports: Pain Controlled, Tolerating Diet, Ambulating, Urinating - Review of Systems General: Reports: No Symptoms HEENT: Reports: No Symptoms Pulmonary: Reports: No Symptoms Cardiovascular: Reports: No Symptoms Gastrointestinal: Reports: No Symptoms Genitourinary: Reports: No Symptoms Musculoskeletal: Reports: No Symptoms Skin: Reports: No Symptoms Neurological: Reports: No Symptoms Psychiatric: Reports: No Symptoms - Patient Data Vitals - Most Recent: Last Vital Signs Temp 36.4 C 06/22/17 05:45 Pulse 84 06/22/17 05:45 Resp 16 06/22/17 05:45 BP 115/66 06/22/17 05:45 Pulse Ox 98 06/22/17 05:45 Weight - Most Recent: 102.512 kg Med Orders - Current: Current Medications Acetaminophen (Tylenol Extra Strength) 500 mg PO Q4H PRN PRN Reason: Pain Last Admin: 06/21/17 20:28 Dose: 500 mg Acetaminophen (Tylenol Extra Strength) 1,000 mg PO Q4H PRN PRN Reason: Pain Last Admin: 06/21/17 15:06 Dose: 1,000 mg Benzocaine/Menthol (Dermoplast Pain Relief 20%-0.5% [place]) 78 gm TOP ASDIRECTED PRN PRN Reason: Perineal Comfort Measure Last Admin: 06/21/17 15:08 Dose: 1 can Bisacodyl (Dulcolax) 10 mg RECTAL .ONCE PRN PRN Reason: Constipation Docusate Sodium (Colace) 100 mg PO BID PRN PRN Reason: Constipation Last Admin: 06/21/17 15:06 Dose: 100 mg Emollient Ointment (Lansinoh Hpa) 0 gm TOP ASDIRECTED PRN PRN Reason: Sore Nipples Last Admin: 06/21/17 10:20 Dose: 1 gm Ibuprofen (Motrin) 400 mg PO Q4H PRN PRN Reason: Pain Ibuprofen (Motrin) 800 mg PO Q6H PRN PRN Reason: Pain Last Admin: 06/22/17 02:52 Dose: 800 mg Oxycodone HCl (Oxycodone) 5 mg PO Q2H PRN PRN Reason: Pain Last Admin: 06/21/17 12:41 Dose: 5 mg Witch Yodit (Tucks) 1 pad TOP ASDIRECTED PRN PRN Reason: comfort care Last Admin: 06/21/17 10:21 Dose: 1 pad Discontinued Medications Carboprost Tromethamine (Hemabate Ds) 250 mcg IM ASDIRECTED PRN PRN Reason: Post Hemorrhage Tranexamic Acid 1,000 mg/ (Sodium Chloride) 110 mls @ 660 mls/hr IV ONETIME PRN PRN Reason: Bleeding Lactated Ringer's (Ringers, Lactated) 1,000 mls @ 150 mls/hr IV ASDIRECTED KADE Last Admin: 06/20/17 21:06 Dose: 999 mls/hr Oxytocin/Sodium Chloride (Oxytocin 30 Unit/500 Ml-Ns) 30 unit in 500 mls @ 999 mls/hr IV TITRATE KADE Oxytocin/Sodium Chloride (Oxytocin 30 Unit/500 Ml-Ns) 30 unit in 500 mls @ 2 mls/hr IV TITRATE KADE; 2 MUNITS/MIN PRN Reason: Protocol Last Titration: 06/21/17 04:04 Dose: 999 munits/min, 999 mls/hr Fentanyl/Bupivacaine HCl (Qtsezcia-Hmjcp-Hd 2 Mcg/Ml-0.125%) Confirm Administered Dose 100 mls @ as directed EP .STK-MED ONE Stop: 06/20/17 21:07 Fentanyl/Bupivacaine HCl (Zubjeijc-Nyhft-By 2 Mcg/Ml-0.125%) Confirm Administered Dose 100 mls @ as directed EP .STK-MED ONE Stop: 06/21/17 03:22 Lidocaine HCl (Xylocaine 1%) 50 ml INJECT .ONCE PRN PRN Reason: Laceration repair Methylergonovine Maleate (Methergine) 0.2 mg IM ASDIRECTED PRN PRN Reason: Post Hemorrhage Misoprostol (Cytotec) 200 mcg PO .ONCE PRN PRN Reason: Post Hemorrhage Misoprostol (Cytotec) 25 mcg PO Q4H KADE Last Admin: 06/20/17 15:30 Dose: 25 mcg Misoprostol (Cytotec) 25 mcg VAG .ONCE KADE Last Admin: 06/20/17 15:30 Dose: 25 mcg Misoprostol (Cytotec) 25 mcg VAG Q4H PRN PRN Reason: Cervical Ripening Nalbuphine HCl (Nubain) 10 mg IVPUSH Q1H PRN PRN Reason: Pain (severe 7-10) Last Admin: 06/20/17 19:53 Dose: 10 mg Ondansetron HCl (Zofran) 4 mg IVPUSH Q4H PRN PRN Reason: Nausea Last Admin: 06/21/17 03:35 Dose: 4 mg Ondansetron HCl (Zofran) Confirm Administered Dose 4 mg .ROUTE .STK-MED ONE Stop: 06/21/17 03:34 Oxytocin (Pitocin) Confirm Administered Dose 30 unit .ROUTE .STK-MED ONE Stop: 06/21/17 03:53 Sodium Chloride (Saline Flush) 10 ml FLUSH ASDIRECTED PRN PRN Reason: Keep Vein Open Sodium Chloride (Saline Flush) 2.5 ml FLUSH ASDIRECTED PRN PRN Reason: Keep Vein Open Sterile Water (Sterile Water For Irrigation) 1,000 ml IRR ASDIRECTED PRN PRN Reason: delivery Terbutaline Sulfate (Brethine) 0.25 mg SUBCUT ASDIRECTED PRN PRN Reason: Tacysystole - Exam General: Reports: Alert, Oriented, Cooperative, No Acute Distress Lungs: Reports: Normal Respiratory Effort GI/Abdominal Exam: Soft, Non-Tender (Female) Exam: Vaginal Bleeding Rectal (Female) Exam: Deferred Back Exam: Reports: Full Range of Motion Extremities: Normal Range of Motion, Non-Tender, No Pedal Edema, Normal Capillary Refill Skin: Reports: Warm, Dry, Intact Wound/Incisions: Reports: Healing Well Neurological: Reports: No New Focal Deficit, Normal Speech, Normal Tone Psy/Mental Status: Reports: Alert, Normal Affect, Normal Mood *Q Meaningful Use (DIS) - VTE *Q VTE Criteria *Q: - Stroke *Q Stroke Criteria *Q: - AMI *Q AMI Criteria *Q:
[2017-06-22] MEDS: Acetaminophen 500 MG Tab PO PRN (09:48)
[2017-06-22 14:37] VITALS: BP 117/66
== END 2017-06-22 10:30 | disposition home or self-care (01) | DRG 560 ==
LOC: MW.OBCHECK 12:32 → MW.OB 12:35 → MW.OBCHECK 14:50 → MW.OB 14:50 → OBSVTOIN 06-21 03:59
PROVIDERS: ADMIT Obstetrics & Gynecology; ATTEND Obstetrics & Gynecology
PROC: 10E0XZZ Delivery of Products of Conception, External Approach (ICD-10-PCS; principal; 2017-06-21)
PROC: 3E0P7VZ Introduction of Hormone into Female Reproductive, Via Natural or Artificial Opening (ICD-10-PCS; 2017-06-21)
PROC: 3E033VJ Introduction of Other Hormone into Peripheral Vein, Percutaneous Approach (ICD-10-PCS; 2017-06-21)
PROC: 0UQMXZZ Repair Vulva, External Approach (ICD-10-PCS; 2017-06-21)
PROC: 00HU33Z Insertion of Infusion Device into Spinal Canal, Percutaneous Approach (ICD-10-PCS; 2017-06-21)
PROC: 3E0R3BZ Introduction of Anesthetic Agent into Spinal Canal, Percutaneous Approach (ICD-10-PCS; 2017-06-21)
DX: O48.0 Post-term pregnancy (principal); O99.284 Endocrine, nutritional and metabolic diseases complicating childbirth; E03.9 Hypothyroidism, unspecified; O99.334 Smoking (tobacco) complicating childbirth; O70.0 First degree perineal laceration during delivery; O69.81X0 Labor and delivery complicated by cord around neck, without compression, not applicable or unspecified; F17.210 Nicotine dependence, cigarettes, uncomplicated; Z3A.40 40 weeks gestation of pregnancy; Z37.0 Single live birth; Z79.899 Other long term (current) drug therapy
CPT/HCPCS: 36415; 51702; 59025; 59409; 84112; 85027; 86850; 86900; 86901; A9270-GY; J2300; J2405; J2590; J7120

== ENCOUNTER 2018-06-20 06:28 | Emergency (ER) | payer BC ==
[2018-06-20 06:40] VITALS: BP 126/72
[2018-06-20] MEDS ORDERED: Lidocaine 2% Viscous Solution 15 ML Cup PO ONE (06:41)
[2018-06-20] MEDS ORDERED: Benzocaine 20% Topical Spray UD MUCMEM ONE (06:41)
--- NOTE | 2018-06-20 06:46 | EDM.PDOC ---
ED HPI GENERAL MEDICAL PROBLEM - General Chief Complaint: ENT Problem Stated Complaint: TOOTH PAIN Time Seen by Provider: 06/20/18 06:40 - History of Present Illness INITIAL COMMENTS - FREE TEXT/NARRATIVE: HISTORY AND PHYSICAL: History of present illness: The patient is a 28-year-old female who presents with complaints of pain to her right upper molar and swelling of the gum in this area. She has not had any nausea vomiting or diarrhea but has had generalized malaise and overall ill feeling. She's not had any facial swelling or swollen glands in her neck. She has no throat pain per se no runny nose no cough or chest pain. The patient had work done on this tooth in the past and she is not sure if that is the issue. She tells me that when she was younger she had many ear infections and she is "immune to amoxicillin". Review of systems: As per history of present illness and below otherwise all systems reviewed and negative. Past medical history: As per history of present illness and as reviewed below otherwise noncontributory. Surgical history: As per history of present illness and as reviewed below otherwise noncontributory. Social history: No reported history of drug or alcohol abuse. Family history: As per history of present illness and as reviewed below otherwise noncontributory. Physical exam: General: Well-developed well-nourished female who is nontoxic and vital signs are noted by me. There is no visible evidence of any facial swelling appreciated on the right side HEENT: Atraumatic, normocephalic, pupils reactive, negative for conjunctival pallor or scleral icterus, mucous membranes moist, throat clear, neck supple, nontender, trachea midline. There is no cervical adenopathy or nuchal rigidity. There is no gross dental disease appreciated and in the area of question at the right upper molar area there is some minimal swelling of the gum in this region without fluctuance and there is no gross tenderness with palpation of the tooth. Lungs: Clear to auscultation, breath sounds equal bilaterally, chest nontender. Heart: S1S2, regular and rhythm no overt Abdomen: Deferred Pelvis: Deferred Genitourinary: Deferred. Rectal: Deferred. Extremities: Atraumatic, full range of motion without deficits Neurovascular unremarkable. Neuro: Awake, alert, oriented. Cranial nerves II through XII unremarkable. Cerebellum unremarkable. Motor and sensory unremarkable throughout. Exam nonfocal. Diagnostics: [] Therapeutics: Dental balls Impression: Dental pain Definitive disposition and diagnosis as appropriate pending reevaluation and review of above. 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: Musculoskeletal History: Reports: None Neurological History: Reports: None Psychiatric History: Reports: None Endocrine/Metabolic History: Reports: Hypothyroidism, Obesity/BMI 30+ Hematologic History: Reports: None Immunologic History: Reports: None Oncologic (Cancer) History: Reports: None Dermatologic History: Reports: None - Infectious Disease History Infectious Disease History: Reports: Chicken Pox - Past Surgical History Female Surgical History: Reports: Other (See Below) - Past Imaging History Past Imaging History: Reports: None Social & Family History - Family History Family Medical History: Noncontributory - Caffeine Use Caffeine Use: Reports: None ED ROS GENERAL - Review of Systems Review Of Systems: ROS reveals no pertinent complaints other than HPI. ED EXAM, GENERAL - Physical Exam Exam: See Below (See dictation) Course - Vital Signs Last Recorded V/S: Last Vital Signs Temp 36.4 C 06/20/18 06:38 Pulse 98 06/20/18 06:38 Resp 18 06/20/18 06:38 BP 126/72 06/20/18 06:38 Pulse Ox 98 06/20/18 06:38 - Orders/Labs/Meds Orders: Active Orders 24 hr Category Date Time Status Benzocaine [Hurricaine One 20%] Med 06/20/18 06:41 Once 2 each MUCMEM ONETIME ONE Lidocaine 2% [Xylocaine 2% Viscous] Med 06/20/18 06:41 Once 15 ml PO ONETIME ONE Medication Orders Lidocaine HCl (Xylocaine 2% Viscous) 15 ml PO ONETIME ONE Stop: 06/20/18 06:42 Meds: Medications Generic Name Dose Route Start Last Admin Trade Name Tristian PRN Reason Stop Dose Admin Lidocaine HCl 15 ml 06/20/18 06:41 Xylocaine 2% Viscous PO 06/20/18 06:42 ONETIME ONE Departure - Departure Time of Disposition: 06:44 Disposition: Home, Self-Care 01 Condition: Good Clinical Impression: Pain, dental - Discharge Information Referrals: Shanell Begum [employer] OPERATOR [Primary Care Provider] - Additional Instructions: The following information is given to patients seen in the emergency department who are being discharged to home. This information is to outline your options for follow-up care. We provide all patients seen in our emergency department with a follow-up referral. The need for follow-up, as well as the timing and circumstances, are variable depending upon the specifics of your emergency department visit. If you don't have a primary care physician on staff, we will provide you with a referral. We always advise you to contact your personal physician following an emergency department visit to inform them of the circumstance of the visit and for follow-up with them and/or the need for any referrals to a consulting specialist. The emergency department will also refer you to a specialist when appropriate. This referral assures that you have the opportunity for followup care with a specialist. All of these measure are taken in an effort to provide you with optimal care, which includes your followup. Under all circumstances we always encourage you to contact your private physician who remains a resource for coordinating your care. When calling for followup care, please make the office aware that this follow-up is from your recent emergency room visit. If for any reason you are refused follow-up, please contact the [facility] emergency department at and ask to speak to the emergency department charge nurse. [facility] Primary care- [place] [address] Please follow-up with one of our local dentists using the resources you have been given today for follow-up care and definitive management of this tooth issue. Ice to face to reduce any swelling and use [id number] Tylenol and ibuprofen for pain fevers. Please take antibiotics as prescribed, clindamycin, that you have been given via [facility] . Use dental balls you have been given today in the ED for pain management as shown. Return to ER as needed and as discussed - My Orders Last 24 Hours: My Active Orders 06/20/18 06:41 Benzocaine [Hurricaine One 20%] 2 each MUCMEM ONETIME ONE Lidocaine 2% [Xylocaine 2% Viscous] 15 ml PO ONETIME ONE - Assessment/Plan Last 24 Hours: My Active Orders 06/20/18 06:41 Benzocaine [Hurricaine One 20%] 2 each MUCMEM ONETIME ONE Lidocaine 2% [Xylocaine 2% Viscous] 15 ml PO ONETIME ONE
== END 2018-06-20 06:55 | disposition home or self-care (01) ==
LOC: MW.ED 06:28
DX: K08.89 Other specified disorders of teeth and supporting structures (principal); E03.9 Hypothyroidism, unspecified
CPT/HCPCS: 99282; A9270

== ENCOUNTER 2018-11-17 22:16 | Emergency (ER) | payer BC ==
--- NOTE | 2018-11-17 23:16 | EDM.PDOC ---
<Prasanth Troncoso - Last Filed: 11/17/18 22:58> ED HPI GENERAL MEDICAL PROBLEM - General Chief Complaint: Respiratory Problem Stated Complaint: COUGH Time Seen by Provider: 11/17/18 23:25 - History of Present Illness INITIAL COMMENTS - FREE TEXT/NARRATIVE: HISTORY AND PHYSICAL: History of present illness: 28 year old 13 weeks and 5 days presents to the emergency department for the evaluation of a persistent cough. She has attempted to use OTC Tylenol cold & flu as well as Mucinex DM without relief. She reports her cough is dry and does not have increased mucous production. She reports occasional chills, she has not had any recent fever, sinus pressure or drainage. Her was treated for a cough approximately 10 days ago. Review of systems: As per history of present illness and below otherwise all systems reviewed and negative. Past medical history: As per history of present illness and as reviewed below otherwise noncontributory. Surgical history: As per history of present illness and as reviewed below otherwise noncontributory. Social history: No reported history of drug or alcohol abuse. Family history: As per history of present illness and as reviewed below otherwise noncontributory. Physical exam: Constitutional: Well developed well nourished non toxic appearing HEENT: Atraumatic, normocephalic, pupils reactive, negative for conjunctival pallor or scleral icterus, mucous membranes moist, throat clear, neck supple, nontender, trachea midline. Lungs: Clear to auscultation, breath sounds equal bilaterally, chest nontender. Heart: S1S2, regular, negative for clicks, rubs, or JVD. Abdomen: Soft, nondistended, nontender. Negative for masses or hepatosplenomegaly. Negative for costovertebral tenderness. Pelvis: Stable nontender. Genitourinary: Deferred. Rectal: Deferred. Extremities: Atraumatic, negative for cords or calf pain. Neurovascular unremarkable. Neuro: Awake, alert, oriented. Cranial nerves II through XII unremarkable. Cerebellum unremarkable. Motor and sensory unremarkable throughout. Exam nonfocal. Diagnostics: None Therapeutics: None Impression: Cough Plan: The patient will be prescribed a Ventolin inhaler & instructed to take OTC Robitussin per the manufacture instructions. She is to avoid second hand smoke. The plan of care was reviewed with the patient. She is in agreement to the treatment plan. Definitive disposition and diagnosis as appropriate pending reevaluation and review of above. chest Pain Score (Numeric/FACES): 5 - Related Data Allergies Allergy/AdvReac Type Severity Reaction Status Date / Time No Known Allergies Allergy Verified 11/17/18 22:19 Home Meds: Home Meds Levothyroxine 150 mcg PO ACBREAKFAST 05/26/15 [History] #103/Iron Fumarate/Fa [ ] 1 tab PO DAILY 11/17/18 [ History] Past Medical History - Past Health History Medical/Surgical History: Denies Medical/Surgical History HEENT History: Reports: Impaired Vision, Other (See Below) Other HEENT History: wears glasses Cardiovascular History: Reports: None Respiratory History: Reports: None Gastrointestinal History: Reports: GERD Genitourinary History: Reports: None 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: Musculoskeletal History: Reports: None Neurological History: Reports: None Psychiatric History: Reports: None Endocrine/Metabolic History: Reports: Hypothyroidism Hematologic History: Reports: None Immunologic History: Reports: None Oncologic (Cancer) History: Reports: None Dermatologic History: Reports: None - Infectious Disease History Infectious Disease History: Reports: Chicken Pox - Past Surgical History Female Surgical History: Reports: Other (See Below) - Past Imaging History Past Imaging History: Reports: None Social & Family History - Family History Family Medical History: Noncontributory - Tobacco Use Smoking Status *Q: Never Smoker - Caffeine Use Caffeine Use: Reports: None - Recreational Drug Use Recreational Drug Use: No Course - Vital Signs Last Recorded V/S: Last Vital Signs Temp 98 F 11/17/18 22:30 Pulse 98 11/17/18 22:30 Resp 18 11/17/18 22:30 BP 116/59 L 11/17/18 22:30 Pulse Ox 97 11/17/18 22:30 Departure - Departure Disposition: Home, Self-Care 01 Clinical Impression: Cough, URI (upper respiratory infection) - Discharge Information Referrals: PCP,None [Primary Care Provider] - Forms: ED Department Discharge Additional Instructions: The following information is given to patients seen in the emergency department who are being discharged to home. This information is to outline your options for follow-up care. We provide all patients seen in our emergency department with a follow-up referral. The need for follow-up, as well as the timing and circumstances, are variable depending upon the specifics of your emergency department visit. If you don't have a primary care physician on staff, we will provide you with a referral. We always advise you to contact your personal physician following an emergency department visit to inform them of the circumstance of the visit and for follow-up with them and/or the need for any referrals to a consulting specialist. The emergency department will also refer you to a specialist when appropriate. This referral assures that you have the opportunity for follow-up care with a specialist. All of these measure are taken in an effort to provide you with optimal care, which includes your follow-up. Under all circumstances we always encourage you to contact your private physician who remains a resource for coordinating your care. When calling for follow-up care, please make the office aware that this follow-up is from your recent emergency room visit. If for any reason you are refused follow-up, please contact the [facility] Emergency Department at and asked to speak to the emergency department charge nurse. [facility] [address] [place] [address] [place] [address] Use inhaler as instructed. 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 ED EXAM, GENERAL - Physical Exam Exam: See Below (see dictation) Departure - Departure Time of Disposition: 23:23 Condition: Good
[2018-11-17 23:51] VITALS: BP 109/62; PULSE 89
== END 2018-11-17 23:45 | disposition home or self-care (01) ==
LOC: MW.ED 22:16
DX: O99.511 Diseases of the respiratory system complicating pregnancy, first trimester (principal); J06.9 Acute upper respiratory infection, unspecified; O99.281 Endocrine, nutritional and metabolic diseases complicating pregnancy, first trimester; E03.9 Hypothyroidism, unspecified; Z79.899 Other long term (current) drug therapy; Z3A.13 13 weeks gestation of pregnancy
CPT/HCPCS: 99283

== ENCOUNTER 2019-05-19 00:07 | Inpatient (IN) | payer BC ==
[2019-05-19] MEDS ORDERED: Sodium Chloride 0.9% 2.5 ML Syringe FLUSH PRN (00:22)
[2019-05-19] MEDS ORDERED: Tranexamic Acid 1,000 MG in Sodium Chloride 0.9% 100 ML IV PRN (00:22)
[2019-05-19] MEDS ORDERED: Misoprostol 200 MCG Tab PO PRN (00:22)
[2019-05-19] MEDS ORDERED: Methylergonovine 0.2 MG/1 ML Amp IM PRN (00:22)
[2019-05-19] MEDS ORDERED: Ondansetron 4 MG/2 ML SDV IVPUSH PRN (00:22)
[2019-05-19] MEDS ORDERED: Butorphanol 1 MG/ML SDV IVPUSH PRN (00:22)
[2019-05-19] MEDS ORDERED: Nalbuphine 10 MG/1 ML Vial IVPUSH PRN (00:22)
[2019-05-19] MEDS ORDERED: Lidocaine 1% 50 ML MDV INJECT PRN (00:22)
[2019-05-19] MEDS ORDERED: Carboprost Tromethamine 250 MCG/1 ML Amp IM PRN (00:22)
[2019-05-19] MEDS ORDERED: Sodium Chloride 0.9% 10 ML SDV IV PRN (00:22)
[2019-05-19] MEDS ORDERED: Sodium Chloride 0.9% 10 ML Syringe FLUSH PRN (00:22)
[2019-05-19] MEDS ORDERED: Water For Irrigation,Sterile 1,000 ML Container IRR PRN (00:22)
[2019-05-19] MEDS ORDERED: Misoprostol 25 MCG (1/4 of 100 MCG) Tab VAG PRN (00:25)
[2019-05-19] MEDS ORDERED: Terbutaline 1 MG/ML SDV SUBCUT PRN (00:25)
[2019-05-19] MEDS ORDERED: Misoprostol 25 MCG (1/4 of 100 MCG) Tab PO ONE (00:27)
[2019-05-19] MEDS ORDERED: Oxytocin/0.9 % Sodium Chloride 30 UNIT/500 ML BAG IV SCH ×2 (00:30)
[2019-05-19] MEDS ORDERED: Lactated Ringers 1,000 ML IV SCH (00:30)
[2019-05-19] MEDS: Misoprostol 25 MCG (1/4 of 100 MCG) Tab VAG PRN ×2 (05:23→10:35)
--- NOTE | 2019-05-19 08:27 | PCM.LDHP ---
L&D History of Present Illness - General Date of Service: 05/19/19 Admit Problem/Dx: Patient Status Order with Admit Dx/Problem 05/19/19 00:22 Patient Status [ADT] Routine Admission Diagnosis/Problem Admission Diagnosis/Problem 05/19/19 08:22 29 yo presenting for IOL at 39 3/7 weeks gestation, RI, A+, GBS negative Source of Information: Patient History Limitations: Reports: No Limitations - History of Present Illness Improves with: Reports: None Worsens with: Reports: None Associated Symptoms: Reports: N - Related Data Allergies/Adverse Reactions: Allergies Allergy/AdvReac Type Severity Reaction Status Date / Time No Known Allergies Allergy Verified 11/17/18 22:19 Home Medications: Home Meds Levothyroxine 150 mcg PO ACBREAKFAST 05/26/15 [History] #103/Iron Fumarate/Fa [ ] 1 tab PO DAILY 11/17/18 [ History] Past Medical History - Past Health History Medical/Surgical History: Denies Medical/Surgical History HEENT History: Reports: Impaired Vision, Other (See Below) Other HEENT History: wears glasses Cardiovascular History: Reports: None Respiratory History: Reports: None Gastrointestinal History: Reports: None Genitourinary History: Reports: None 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: Musculoskeletal History: Reports: None Neurological History: Reports: Concussion, Headaches, Chronic, Migraines Psychiatric History: Reports: None Endocrine/Metabolic History: Reports: Hypothyroidism Hematologic History: Reports: None Immunologic History: Reports: None Oncologic (Cancer) History: Reports: None Dermatologic History: Reports: None - Infectious Disease History Infectious Disease History: Reports: Chicken Pox, Mononucleosis - Past Surgical History HEENT Surgical History: Reports: Other (See Below) Other HEENT Surgeries/Procedures: wisdom teeth extraction Cardiovascular Surgical History: Reports: None GI Surgical History: Reports: None Female Surgical History: Reports: Other (See Below) Other Female Surgeries/Procedures: lump removed form right breast - Past Imaging History Past Imaging History: Reports: None Social & Family History - Family History Family Medical History: Noncontributory HEENT: Reports: Glaucoma Cardiac: Reports: Heart Failure, Pacemaker, Stent Respiratory: Reports: COPD GI: Reports: None : Reports: None OBGYN: Reports: Musculoskeletal: Reports: Arthritis Neurological: Reports: CVA Psychiatric: Reports: Anxiety, Bipolar, Depression Endocrine/Metabolic: Reports: None Hematologic: Reports: None Immunologic: Reports: None Dermatologic: Reports: Psoriasis Oncologic: Reports: Breast, Other (See Below) Other Oncologic Family History: stomach - Tobacco Use Smoking Status *Q: Former Smoker Years of Tobacco use: 7 Used Tobacco, but Quit: Yes Month/Year Tobacco Last Used: 10/2018 Second Hand Smoke Exposure: No - Caffeine Use Caffeine Use: Reports: Coffee - Recreational Drug Use Recreational Drug Use: No H&P Review of Systems - Review of Systems: Review Of Systems: See Below General: Reports: No Symptoms HEENT: Reports: No Symptoms Pulmonary: Reports: No Symptoms Cardiovascular: Reports: No Symptoms Gastrointestinal: Reports: No Symptoms Genitourinary: Reports: No Symptoms Musculoskeletal: Reports: No Symptoms Skin: Reports: No Symptoms Psychiatric: Reports: No Symptoms Neurological: Reports: No Symptoms Hematologic/Lymphatic: Reports: No Symptoms Immunologic: Reports: No Symptoms L&D Exam - Exam Exam: See Below - Vital Signs Weight: 231 lb - OB Specific Contraction Intensity: Mild Movement: Active Heart Tones: Present Presentation: Vertex - Rivera Score Rivera Score Cervix Position: Posterior Rivera Score Consistency: Soft Rivera Score Effacement: 51-70% Rivera Score Dilation: 1-2 cm Rivera Score Infant's Station: -2 Rivera Score Total: 6 - Exam General: Alert, Oriented, Cooperative HEENT: Hearing Intact Lungs: Normal Respiratory Effort Rectal Exam: Deferred Genitourinary: No: Cervical fluid, Vaginal bleeding Back Exam: Full Range of Motion Extremities: Normal Range of Motion, No Pedal Edema Skin: Warm, Dry, Intact Neurological: Cranial Nerves Intact, Strength Equal Bilateral, Normal Gait, Normal Speech, Normal Tone, Sensation Intact Psychiatric: Alert, Normal Affect, Normal Mood - Patient Data Lab Results Last 24 hrs: Laboratory Results - last 24 hr 05/19/19 05/19/19 Range/Units 00:54 00:54 WBC 8.96 (4.0-11.0) K/uL RBC 3.85 L (4.30-5.90) M/uL Hgb 10.8 L (12.0-16.0) g/dL Hct 31.3 L (36.0-46.0) % MCV 81.3 (80.0-98.0) fL MCH 28.1 (27.0-32.0) pg MCHC 34.5 (31.0-37.0) g/dL RDW Std Deviation 41.6 (28.0-62.0) fl RDW Coeff of Carmen 14 (11.0-15.0) % Plt Count 244 (150-400) K/uL MPV 9.30 (7.40-12.00) fL Blood Type A POSITIVE Antibody Screen NEGATIVE Result Diagrams: 05/19/19 00:54 - Problem List (1) Supervision of normal IUP (intrauterine ) in multigravida SNOMED Code(s): 169180238, 884948835, 381369540 ICD Code: Z34.80 - ENCOUNTER FOR SUPRVSN OF NORMAL , UNSP TRIMESTER Status: Acute Priority: High Current Visit: Yes Qualifiers: Trimester: third trimester Qualified Code(s): Z34.83 - Encounter for supervision of other normal , third trimester Problem List Initiated/Reviewed/Updated: Yes Orders Last 24hrs: Active Orders 24 hr Category Date Time Status Patient Status [ADT] Routine ADT 05/19/19 00:22 Active Bedrest Bathroom Privileges [RC] ASDIRECTED Care 05/19/19 00:25 Active Communication Order [RC] ASDIRECTED Care 05/19/19 00:25 Active Communication Order [RC] ASDIRECTED Care 05/19/19 00:25 Active Communication Order [RC] ASDIRECTED Care 05/19/19 00:25 Active Heart Tones [RC] CONTINUOUS Care 05/19/19 00:22 Active Non Stress Test [RC] PER UNIT ROUTINE Care 05/19/19 00:22 Active May Shower [RC] ASDIRECTED Care 05/19/19 00:22 Active Notify Provider [RC] PRN Care 05/19/19 00:22 Active Notify Provider [RC] PRN Care 05/19/19 00:25 Active Notify Provider [RC] PRN Care 05/19/19 00:25 Active Notify Provider [RC] STAT Care 05/19/19 00:25 Active Up ad Ciara [RC] ASDIRECTED Care 05/19/19 00:22 Active Vaginal Exam [RC] PRN Care 05/19/19 00:22 Active Vaginal Exam [RC] PRN Care 05/19/19 00:25 Active Vital Signs [RC] PER UNIT ROUTINE Care 05/19/19 00:22 Active Vital Signs [RC] PER UNIT ROUTINE Care 05/19/19 00:25 Active Regular Diet [DIET] Diet 05/19/19 Breakfast Active RPR (SYPHILIS SERO) W/ RFLX [REF] Routine Lab 05/19/19 00:54 Received Butorphanol [Stadol] Med 05/19/19 00:22 Active 1 mg IVPUSH Q1H PRN Carboprost Tromethamine [Hemabate DS] Med 05/19/19 00:22 Active 250 mcg IM ASDIRECTED PRN Lactated Ringers [Ringers, Lactated] 1,000 ml Med 05/19/19 00:30 Active IV ASDIRECTED Lidocaine 1% [Xylocaine 1%] Med 05/19/19 00:22 Active 50 ml INJECT ONETIME PRN Methylergonovine [Methergine] Med 05/19/19 00:22 Active 0.2 mg IM ASDIRECTED PRN Nalbuphine [Nubain] Med 05/19/19 00:22 Active 10 mg IVPUSH Q1H PRN Ondansetron [Zofran] Med 05/19/19 00:22 Active 4 mg IVPUSH Q6H PRN Oxytocin/0.9 % Sodium Chloride [Oxytocin 30 Unit/500 ML Med 05/19/19 00:30 Active -NS] 30 unit in 500 ml IV TITRATE Oxytocin/0.9 % Sodium Chloride [Oxytocin 30 Unit/500 ML Med 05/19/19 00:30 Active -NS] 30 unit in 500 ml IV TITRATE Sodium Chloride 0.9% [Normal Saline] Med 05/19/19 00:22 Active 10 ml IV ASDIRECTED PRN Sodium Chloride 0.9% [Saline Flush] Med 05/19/19 00:22 Active 10 ml FLUSH ASDIRECTED PRN Sodium Chloride 0.9% [Saline Flush] Med 05/19/19 00:22 Active 2.5 ml FLUSH ASDIRECTED PRN Terbutaline [Brethine] Med 05/19/19 00:25 Active 0.25 mg SUBCUT ASDIRECTED PRN Tranexamic Acid [Cyklokapron] 1,000 mg Med 05/19/19 00:22 Active Sodium Chloride 0.9% [Normal Saline] 100 ml IV ONETIME Water For Irrigation,Sterile [Sterile Water for Med 05/19/19 00:22 Active Irrigation] 1,000 ml IRR ASDIRECTED PRN miSOPROStoL [Cytotec] Med 05/19/19 00:22 Active 200 mcg PO ONETIME PRN miSOPROStoL [Cytotec] Med 05/19/19 00:25 Active 25 mcg VAG ONETIME PRN miSOPROStoL [Cytotec] Med 05/19/19 00:25 Active 25 mcg VAG Q4H PRN Scalp Electrode [WOMSER] Per Unit Routine Oth 05/19/19 00:22 Ordered Medication Administration Instruction [OM.PC] Q3H Oth 05/19/19 00:30 Ordered Peripheral IV Insertion Adult [OM.PC] Routine Oth 05/19/19 00:22 Ordered Resuscitation Status Routine Resus Stat 05/19/19 00:22 Ordered Medication Orders Butorphanol Tartrate (Stadol) 1 mg IVPUSH Q1H PRN PRN Reason: Pain Carboprost Tromethamine (Hemabate Ds) 250 mcg IM ASDIRECTED PRN PRN Reason: Post Hemorrhage Lactated Ringer's (Ringers, Lactated) 1,000 mls @ 150 mls/hr IV ASDIRECTED KADE Oxytocin/Sodium Chloride (Oxytocin 30 Unit/500 Ml-Ns) 30 unit in 500 mls @ 500 mls/hr IV TITRATE KADE Tranexamic Acid 1,000 mg/ (Sodium Chloride) 110 mls @ 660 mls/hr IV ONETIME PRN PRN Reason: Bleeding Oxytocin/Sodium Chloride (Oxytocin 30 Unit/500 Ml-Ns) 30 unit in 500 mls @ 2 mls/hr IV TITRATE KADE; Protocol Lidocaine HCl (Xylocaine 1%) 50 ml INJECT ONETIME PRN PRN Reason: Laceration repair Methylergonovine Maleate (Methergine) 0.2 mg IM ASDIRECTED PRN PRN Reason: Post Hemorrhage Misoprostol (Cytotec) 200 mcg PO ONETIME PRN PRN Reason: Post Hemorrhage Misoprostol (Cytotec) 25 mcg VAG ONETIME PRN PRN Reason: Cervical Ripening Last Admin: 05/19/19 01:15 Dose: 25 mcg Misoprostol (Cytotec) 25 mcg VAG Q4H PRN PRN Reason: Cervical Ripening Last Admin: 05/19/19 05:23 Dose: 25 mcg Nalbuphine HCl (Nubain) 10 mg IVPUSH Q1H PRN PRN Reason: Pain (severe 7-10) Ondansetron HCl (Zofran) 4 mg IVPUSH Q6H PRN PRN Reason: Nausea/Vomiting Sodium Chloride (Saline Flush) 10 ml FLUSH ASDIRECTED PRN PRN Reason: Keep Vein Open Sodium Chloride (Saline Flush) 2.5 ml FLUSH ASDIRECTED PRN PRN Reason: Keep Vein Open Sodium Chloride (Normal Saline) 10 ml IV ASDIRECTED PRN PRN Reason: IV Use Sterile Water (Sterile Water For Irrigation) 1,000 ml IRR ASDIRECTED PRN PRN Reason: delivery Terbutaline Sulfate (Brethine) 0.25 mg SUBCUT ASDIRECTED PRN PRN Reason: Tacysystole Assessment/Plan Comment:: IOL A: 29 yo presenting for IOL at 39 3/7 weeks gestation, RI, A+, GBS negative , up and walking with P: Admit, cytotec to pitocin, epidural PRN, anticipate , Dr. Ames updated.
[2019-05-19] MEDS ORDERED: Misoprostol 25 MCG (1/4 of 100 MCG) Tab PO SCH (10:30)
[2019-05-19] MEDS ORDERED: fentaNYL 100 MCG/2 ML SDV ONE (15:28)
[2019-05-19] MEDS ORDERED: Ropivacaine HCl/PF 100 ML ONE (15:28)
--- NOTE | 2019-05-19 15:48 | PCM.PREANE ---
Preanesthetic Assessment - Anesthesia/Transfusion/Family Hx Anesthesia History: Prior Anesthesia Without Reaction Family History of Anesthesia Reaction: No Transfusion History: No Prior Transfusion(s) - Physical Assessment NPO Status Date: 05/19/19 NPO Status Time: 13:00 Height: 1.75 m Weight: 104.78 kg ASA Class: 1 - Lab Values: Laboratory Last Values WBC 8.96 K/uL (4.0-11.0) 05/19/19 00:54 RBC 3.85 M/uL (4.30-5.90) L 05/19/19 00:54 Hgb 10.8 g/dL (12.0-16.0) L 05/19/19 00:54 Hct 31.3 % (36.0-46.0) L 05/19/19 00:54 MCV 81.3 fL (80.0-98.0) 05/19/19 00:54 MCH 28.1 pg (27.0-32.0) 05/19/19 00:54 MCHC 34.5 g/dL (31.0-37.0) 05/19/19 00:54 RDW Std Deviation 41.6 fl (28.0-62.0) 05/19/19 00:54 RDW Coeff of Carmen 14 % (11.0-15.0) 05/19/19 00:54 Plt Count 244 K/uL (150-400) 05/19/19 00:54 MPV 9.30 fL (7.40-12.00) 02 00:54 Blood Type A POSITIVE 05/19/19 00:54 Antibody Screen NEGATIVE 05/19/19 00:54 - Allergies Allergies/Adverse Reactions: Allergies Allergy/AdvReac Type Severity Reaction Status Date / Time No Known Allergies Allergy Verified 11/17/18 22:19 - Acknowledgements Anesthesia Type Planned: Epidural Pt an Appropriate Candidate for the Planned Anesthesia: Yes Alternatives and Risks of Anesthesia Discussed w Pt/Guardian: Yes Pt/Guardian Understands and Agrees with Anesthesia Plan: Yes PreAnesthesia Questionnaire - Past Health History Medical/Surgical History: Denies Medical/Surgical History HEENT History: Reports: Impaired Vision, Other (See Below) Other HEENT History: wears glasses Cardiovascular History: Reports: None Respiratory History: Reports: None Gastrointestinal History: Reports: None Genitourinary History: Reports: None 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: Musculoskeletal History: Reports: None Neurological History: Reports: Concussion, Headaches, Chronic, Migraines Psychiatric History: Reports: None Endocrine/Metabolic History: Reports: Hypothyroidism Hematologic History: Reports: None Immunologic History: Reports: None Oncologic (Cancer) History: Reports: None Dermatologic History: Reports: None - Infectious Disease History Infectious Disease History: Reports: Chicken Pox, Mononucleosis - Past Surgical History HEENT Surgical History: Reports: Other (See Below) Other HEENT Surgeries/Procedures: wisdom teeth extraction Cardiovascular Surgical History: Reports: None GI Surgical History: Reports: None Female Surgical History: Reports: Other (See Below) Other Female Surgeries/Procedures: lump removed form right breast - Past Imaging History Past Imaging History: Reports: None - SUBSTANCE USE Smoking Status *Q: Former Smoker Tobacco Use Within Last Twelve Months: Cigarettes Second Hand Smoke Exposure: No Recreational Drug Use History: No - HOME MEDS Home Medications: Home Meds Levothyroxine 150 mcg PO ACBREAKFAST 05/26/15 [History] #103/Iron Fumarate/Fa [ ] 1 tab PO DAILY 11/17/18 [ History] - CURRENT (IN HOUSE) MEDS Current Meds: Current Medications Butorphanol Tartrate (Stadol) 1 mg IVPUSH Q1H PRN PRN Reason: Pain Carboprost Tromethamine (Hemabate Ds) 250 mcg IM ASDIRECTED PRN PRN Reason: Post Hemorrhage Lactated Ringer's (Ringers, Lactated) 1,000 mls @ 150 mls/hr IV ASDIRECTED KADE Last Admin: 05/19/19 14:26 Dose: 999 mls/hr Oxytocin/Sodium Chloride (Oxytocin 30 Unit/500 Ml-Ns) 30 unit in 500 mls @ 500 mls/hr IV TITRATE KADE Tranexamic Acid 1,000 mg/ (Sodium Chloride) 110 mls @ 660 mls/hr IV ONETIME PRN PRN Reason: Bleeding Oxytocin/Sodium Chloride (Oxytocin 30 Unit/500 Ml-Ns) 30 unit in 500 mls @ 2 mls/hr IV TITRATE KADE; Protocol Lidocaine HCl (Xylocaine 1%) 50 ml INJECT ONETIME PRN PRN Reason: Laceration repair Methylergonovine Maleate (Methergine) 0.2 mg IM ASDIRECTED PRN PRN Reason: Post Hemorrhage Misoprostol (Cytotec) 200 mcg PO ONETIME PRN PRN Reason: Post Hemorrhage Misoprostol (Cytotec) 25 mcg VAG ONETIME PRN PRN Reason: Cervical Ripening Last Admin: 05/19/19 01:15 Dose: 25 mcg Misoprostol (Cytotec) 25 mcg VAG Q4H PRN PRN Reason: Cervical Ripening Last Admin: 05/19/19 10:35 Dose: 25 mcg Misoprostol (Cytotec) 25 mcg PO Q4H KADE Last Admin: 05/19/19 10:34 Dose: 25 mcg Nalbuphine HCl (Nubain) 10 mg IVPUSH Q1H PRN PRN Reason: Pain (severe 7-10) Ondansetron HCl (Zofran) 4 mg IVPUSH Q6H PRN PRN Reason: Nausea/Vomiting Sodium Chloride (Saline Flush) 10 ml FLUSH ASDIRECTED PRN PRN Reason: Keep Vein Open Sodium Chloride (Saline Flush) 2.5 ml FLUSH ASDIRECTED PRN PRN Reason: Keep Vein Open Sodium Chloride (Normal Saline) 10 ml IV ASDIRECTED PRN PRN Reason: IV Use Sterile Water (Sterile Water For Irrigation) 1,000 ml IRR ASDIRECTED PRN PRN Reason: delivery Terbutaline Sulfate (Brethine) 0.25 mg SUBCUT ASDIRECTED PRN PRN Reason: Tacysystole Discontinued Medications Fentanyl (Sublimaze) Confirm Administered Dose 100 mcg .ROUTE .STK-MED ONE Stop: 05/19/19 15:29 Ropivacaine (Naropin 0.2%) Confirm Administered Dose 100 mls @ as directed .ROUTE .STK-MED ONE Stop: 05/19/19 15:29 Misoprostol (Cytotec) 25 mcg PO ONETIME ONE Stop: 05/19/19 00:28 Last Admin: 05/19/19 01:18 Dose: 25 mcg
--- NOTE | 2019-05-19 15:51 | PCM.PRNOTE ---
- Free Text/Narrative Note: Anes Note Patietn requestsw epidural for L&D> Sitting position, Level L3-L4 midline approach. Sterile technique Chloraprep scrub to lumbar area. Sterile fenestrated drape applied. Epidural space easily achieved single attempt using CLAUDIA technique. CLAUDIA at 3 cm. Cath threaded 5 cm with ease. Cath secured at 9 cm at skin using sterile clear adhesive dressing. 1544 Test 3 cc 1.5% lido with epi negative. 1546 Load 10 cc 0.2% ropivicaine with 1 mcg cc fentayl in slow divided doses. 1551 Pump started with 90 cc same solution at 8 cc hr with 6 cc q 20 mi prn bolus. Efrain well. 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
[2019-05-19] MEDS ORDERED: Lanolin 100% Cream 7 GM Tube TOP PRN (17:00)
[2019-05-19] MEDS ORDERED: Docusate Sodium 100 MG Cap PO PRN (17:00)
[2019-05-19] MEDS ORDERED: Ibuprofen 400 MG Tab PO PRN (17:00)
[2019-05-19] MEDS ORDERED: oxyCODONE 5 MG Tab PO PRN (17:00)
[2019-05-19] MEDS ORDERED: Benzocaine/Menthol 20%-0.5% Spray 78 GM Cannister TOP PRN (17:00)
[2019-05-19] MEDS ORDERED: Bisacodyl 10 MG Supp RECTAL PRN (17:00)
[2019-05-19] MEDS ORDERED: Acetaminophen 500 MG Tab PO PRN ×2 (17:00)
--- NOTE | 2019-05-19 17:10 | PCM.DEL ---
L & D Note - General Info Date of Service: 05/19/19 - Delivery Note Cervical Ripening Method: Misoprostil Delivery Outcome: Livebirth Delivery Method: Spontaneous Vaginal Delivery-Single Delivery Mode: Spontaneous Presentation: Vertex Nuchal Cord: None Anesthesia Type: Epidural Episiotomy Type: None Laceration: None Placenta: Intact, Spontaneous Cord: 3 Vessels Estimated Blood Loss: 150 Resuscitation Needed: No Second Stage Interventions: Reports: Encouragement Given, Pushing Effectively, Pushing, Pulls Own Legs Back Delivery Comments (Free Text/Narrative):: viable male, head delivered with good pushing, shoulders and body followed easily after, baby to mom's abdomen skin to skin, cord cut by father of the baby after cessation of pulsing, APGARS 8/9, weight pending, placenta delivered grossly intact, 3VC, EBL 150mL, intact perineum, mom and baby left in stable condition with nurse at bedside for evaluation - General Info Date of Service: 05/19/19 Admission Dx/Problem (Free Text): Patient Status Order with Admit Dx/Problem 05/19/19 00:22 Patient Status [ADT] Routine Admission Diagnosis/Problem Admission Diagnosis/Problem 05/19/19 08:22 29 yo presenting for IOL at 39 3/7 weeks gestation, RI, A+, GBS negative Functional Status: Reports: Pain Controlled - Review of Systems General: Reports: No Symptoms HEENT: Reports: No Symptoms Pulmonary: Reports: No Symptoms Cardiovascular: Reports: No Symptoms Gastrointestinal: Reports: No Symptoms Genitourinary: Reports: No Symptoms Musculoskeletal: Reports: No Symptoms Skin: Reports: No Symptoms Neurological: Reports: No Symptoms Psychiatric: Reports: No Symptoms - Patient Data Weight - Most Recent: 231 lb Lab Results Last 24 Hours: Laboratory Results - last 24 hr 05/19/19 05/19/19 Range/Units 00:54 00:54 WBC 8.96 (4.0-11.0) K/uL RBC 3.85 L (4.30-5.90) M/uL Hgb 10.8 L (12.0-16.0) g/dL Hct 31.3 L (36.0-46.0) % MCV 81.3 (80.0-98.0) fL MCH 28.1 (27.0-32.0) pg MCHC 34.5 (31.0-37.0) g/dL RDW Std Deviation 41.6 (28.0-62.0) fl RDW Coeff of Carmen 14 (11.0-15.0) % Plt Count 244 (150-400) K/uL MPV 9.30 (7.40-12.00) fL Blood Type A POSITIVE Antibody Screen NEGATIVE Med Orders - Current: Current Medications Butorphanol Tartrate (Stadol) 1 mg IVPUSH Q1H PRN PRN Reason: Pain Carboprost Tromethamine (Hemabate Ds) 250 mcg IM ASDIRECTED PRN PRN Reason: Post Hemorrhage Lactated Ringer's (Ringers, Lactated) 1,000 mls @ 150 mls/hr IV ASDIRECTED KADE Last Admin: 05/19/19 14:26 Dose: 999 mls/hr Oxytocin/Sodium Chloride (Oxytocin 30 Unit/500 Ml-Ns) 30 unit in 500 mls @ 500 mls/hr IV TITRATE KADE Tranexamic Acid 1,000 mg/ (Sodium Chloride) 110 mls @ 660 mls/hr IV ONETIME PRN PRN Reason: Bleeding Oxytocin/Sodium Chloride (Oxytocin 30 Unit/500 Ml-Ns) 30 unit in 500 mls @ 2 mls/hr IV TITRATE KADE; Protocol Lidocaine HCl (Xylocaine 1%) 50 ml INJECT ONETIME PRN PRN Reason: Laceration repair Methylergonovine Maleate (Methergine) 0.2 mg IM ASDIRECTED PRN PRN Reason: Post Hemorrhage Misoprostol (Cytotec) 200 mcg PO ONETIME PRN PRN Reason: Post Hemorrhage Misoprostol (Cytotec) 25 mcg VAG ONETIME PRN PRN Reason: Cervical Ripening Last Admin: 05/19/19 01:15 Dose: 25 mcg Misoprostol (Cytotec) 25 mcg VAG Q4H PRN PRN Reason: Cervical Ripening Last Admin: 05/19/19 10:35 Dose: 25 mcg Misoprostol (Cytotec) 25 mcg PO Q4H KADE Last Admin: 05/19/19 10:34 Dose: 25 mcg Nalbuphine HCl (Nubain) 10 mg IVPUSH Q1H PRN PRN Reason: Pain (severe 7-10) Ondansetron HCl (Zofran) 4 mg IVPUSH Q6H PRN PRN Reason: Nausea/Vomiting Sodium Chloride (Saline Flush) 10 ml FLUSH ASDIRECTED PRN PRN Reason: Keep Vein Open Sodium Chloride (Saline Flush) 2.5 ml FLUSH ASDIRECTED PRN PRN Reason: Keep Vein Open Sodium Chloride (Normal Saline) 10 ml IV ASDIRECTED PRN PRN Reason: IV Use Sterile Water (Sterile Water For Irrigation) 1,000 ml IRR ASDIRECTED PRN PRN Reason: delivery Terbutaline Sulfate (Brethine) 0.25 mg SUBCUT ASDIRECTED PRN PRN Reason: Tacysystole Discontinued Medications Fentanyl (Sublimaze) Confirm Administered Dose 100 mcg .ROUTE .STK-MED ONE Stop: 05/19/19 15:29 Ropivacaine (Naropin 0.2%) Confirm Administered Dose 100 mls @ as directed .ROUTE .STK-MED ONE Stop: 05/19/19 15:29 Misoprostol (Cytotec) 25 mcg PO ONETIME ONE Stop: 05/19/19 00:28 Last Admin: 05/19/19 01:18 Dose: 25 mcg - Exam General: Alert, Oriented, Cooperative, No Acute Distress Lungs: Normal Respiratory Effort GI/Abdominal Exam: Soft, Non-Tender (Female) Exam: Normal External Exam Back Exam: Full Range of Motion Extremities: Non-Tender, No Pedal Edema Skin: Warm, Dry, Intact Neurological: No New Focal Deficit, Normal Speech Psy/Mental Status: Alert, Normal Affect, Normal Mood - Problem List & Annotations (1) Supervision of normal IUP (intrauterine ) in multigravida SNOMED Code(s): 549657542, 084986841, 211040249 Code(s): Z34.80 - ENCOUNTER FOR SUPRVSN OF NORMAL , UNSP TRIMESTER Status: Acute Priority: High Current Visit: Yes Qualifiers: Trimester: third trimester Qualified Code(s): Z34.83 - Encounter for supervision of other normal , third trimester (2) (normal spontaneous vaginal delivery) SNOMED Code(s): 57959074, 968424352 Code(s): O80 - ENCOUNTER FOR FULL-TERM UNCOMPLICATED DELIVERY Status: Acute Priority: High Current Visit: Yes - Problem List Review Problem List Initiated/Reviewed/Updated: Yes - My Orders Last 24 Hours: My Active Orders 05/19/19 17:00 Patient Status [ADT] Routine May Shower [RC] ASDIRECTED Up ad Ciara [RC] ASDIRECTED Vital Signs [RC] PER UNIT ROUTINE Acetaminophen [Tylenol Extra Strength] 1,000 mg PO Q4H PRN Acetaminophen [Tylenol Extra Strength] 500 mg PO Q4H PRN Benzocaine/Menthol [Dermoplast Pain Relief 20%-0.5% [place]] 78 gm TOP ASDIRECTED PRN Docusate Sodium [Colace] 100 mg PO BID PRN Ibuprofen [Motrin] 400 mg PO Q4H PRN Ibuprofen [Motrin] 800 mg PO Q6H PRN Lanolin [Lansinoh HPA] See Dose Instructions TOP ASDIRECTED PRN Witch Yodit [Tucks] 1 pad TOP ASDIRECTED PRN bisacodyL [Dulcolax] 10 mg RECTAL ONETIME PRN oxyCODONE 5 mg PO Q2H PRN Assess Lochia [WOMSER] Per Unit Routine Assess Uterine Involution [WOMSER] Per Unit Routine Peripheral IV Discontinue [OM.PC] Routine 05/20/19 05:11 HEMOGLOBIN/HEMATOCRIT,HH [HEME] Timed - Plan Plan:: IOL A: 29 yo presenting for IOL at 39 3/7 weeks gestation, RI, A+, GBS negative , up and walking with P: Admit, cytotec to pitocin, epidural PRN, anticipate , Dr. Ames updated. Delivery A: viable male, APGARS 8/9, weight pending, placenta intact, 3VC, EBL 150mL , intact perineum, mom and baby left in stable condition with nurse at bedside for evaluation P: Routine plan of care.
[2019-05-19] MEDS: Ibuprofen 800 MG Tab PO PRN (21:50)
[2019-05-19] MEDS: Witch Hazel Medicated Pads 40/Jar TOP PRN (21:51)
--- NOTE | 2019-05-20 07:42 | PCM48HPAN ---
Post Anesthesia Note - EVALUATION WITHIN 48HRS OF ANESTHETIC Vital Signs in Normal Range: Yes Patient Participated in Evaluation: Yes Respiratory Function Stable: Yes Airway Patent: Yes Cardiovascular Function Stable: Yes Hydration Status Stable: Yes Pain Control Satisfactory: Yes Nausea and Vomiting Control Satisfactory: Yes Mental Status Recovered: Yes Vital Signs: Last Vital Signs Temp 37.4 C 05/20/19 03:39 Pulse 62 05/20/19 03:39 Resp 16 05/20/19 03:39 BP 122/66 05/20/19 03:39 Pulse Ox 97 05/19/19 22:36
--- NOTE | 2019-05-20 08:29 | PCM.DCSUM1 ---
Discharge Summary - Hospital Course Free Text/Narrative:: Rachel is a 29 yo G2P S/P of viable NBM sotelo. A+, RI, GBS neg Diagnosis: Stroke: No - Discharge Data Discharge Date: 05/20/19 Discharge Disposition: Home, Self-Care 01 Condition: Good - Referral to Home Health Primary Care Physician: PCP None - Discharge Diagnosis/Problem(s) (1) (normal spontaneous vaginal delivery) SNOMED Code(s): 55974525, 493851659 ICD Code: O80 - ENCOUNTER FOR FULL-TERM UNCOMPLICATED DELIVERY Status: Acute Priority: High Current Visit: Yes - Patient Instructions Diet: Regular Diet as Tolerated, Drink 8-10+ Glasses/Day Feeding Instructions: Well-balanace, wide variety of whole foods rich in fiber, iron, and nutrients Activity: As Tolerated Driving: May Drive Today Showering/Bathing: May Shower Showering/Bathing, Other: May shower, may utilize sitz baths for perineal comfort - Discharge Plan *PRESCRIPTION DRUG MONITORING PROGRAM REVIEWED*: Not Applicable *COPY OF PRESCRIPTION DRUG MONITORING REPORT IN PATIENT MERCEDEZ: Not Applicable Home Medications: Home Meds Levothyroxine 150 mcg PO ACBREAKFAST 05/26/15 [History] #103/Iron Fumarate/Fa [ ] 1 tab PO DAILY 11/17/18 [ History] Oxygen Therapy Mode: Room Air Patient Handouts: Vaginal Delivery, Care After, SIDS Prevention Information, [id number] Referrals: Vanessa Smith CNM [Mid-] - 06/30/19 2:15 pm (Six weeks ) - Discharge Summary/Plan Comment DC Time >30 min.: Yes (May be discharged today 05/20/2019 after 1800) - General Info Date of Service: 05/20/19 Admission Dx/Problem (Free Text: Patient Status Order with Admit Dx/Problem 05/19/19 00:22 Patient Status [ADT] Routine Admission Diagnosis/Problem Admission Diagnosis/Problem 05/19/19 08:22 29 yo presenting for IOL at 39 3/7 weeks gestation, RI, A+, GBS negative Functional Status: Reports: Pain Controlled, Tolerating Diet, Ambulating, Urinating - Review of Systems General: Reports: No Symptoms HEENT: Reports: No Symptoms, Glasses Pulmonary: Reports: No Symptoms Cardiovascular: Reports: No Symptoms Gastrointestinal: Reports: No Symptoms Genitourinary: Reports: No Symptoms Musculoskeletal: Reports: No Symptoms Skin: Reports: No Symptoms Neurological: Reports: No Symptoms Psychiatric: Reports: No Symptoms - Patient Data Vitals - Most Recent: Last Vital Signs Temp 99.4 F 05/20/19 03:39 Pulse 62 05/20/19 03:39 Resp 16 05/20/19 03:39 BP 122/66 05/20/19 03:39 Pulse Ox 97 05/19/19 22:36 Weight - Most Recent: 231 lb Lab Results - Last 24 hrs: Laboratory Results - last 24 hr 05/20/19 Range/Units 05:23 Hgb 10.2 L (12.0-16.0) g/dL Hct 30.7 L (36.0-46.0) % Med Orders - Current: Current Medications Acetaminophen (Tylenol Extra Strength) 500 mg PO Q4H PRN PRN Reason: Pain Acetaminophen (Tylenol Extra Strength) 1,000 mg PO Q4H PRN PRN Reason: Pain Benzocaine/Menthol (Dermoplast Pain Relief 20%-0.5% [place]) 78 gm TOP ASDIRECTED PRN PRN Reason: Perineal Comfort Measure Bisacodyl (Dulcolax) 10 mg RECTAL ONETIME PRN PRN Reason: Constipation Carboprost Tromethamine (Hemabate Ds) 250 mcg IM ASDIRECTED PRN PRN Reason: Post Hemorrhage Docusate Sodium (Colace) 100 mg PO BID PRN PRN Reason: Constipation Emollient Ointment (Lansinoh Hpa) 0 gm TOP ASDIRECTED PRN PRN Reason: Sore Nipples Last Admin: 05/19/19 21:51 Dose: 1 applic Tranexamic Acid 1,000 mg/ (Sodium Chloride) 110 mls @ 660 mls/hr IV ONETIME PRN PRN Reason: Bleeding Ibuprofen (Motrin) 400 mg PO Q4H PRN PRN Reason: Pain Ibuprofen (Motrin) 800 mg PO Q6H PRN PRN Reason: Pain Last Admin: 05/19/19 21:50 Dose: 800 mg Methylergonovine Maleate (Methergine) 0.2 mg IM ASDIRECTED PRN PRN Reason: Post Hemorrhage Misoprostol (Cytotec) 200 mcg PO ONETIME PRN PRN Reason: Post Hemorrhage Misoprostol (Cytotec) 25 mcg PO Q4H KADE Last Admin: 05/19/19 10:34 Dose: 25 mcg Oxycodone HCl (Oxycodone) 5 mg PO Q2H PRN PRN Reason: Pain Sodium Chloride (Saline Flush) 10 ml FLUSH ASDIRECTED PRN PRN Reason: Keep Vein Open Sodium Chloride (Saline Flush) 2.5 ml FLUSH ASDIRECTED PRN PRN Reason: Keep Vein Open Sodium Chloride (Normal Saline) 10 ml IV ASDIRECTED PRN PRN Reason: IV Use Witch Yodit (Tucks) 1 pad TOP ASDIRECTED PRN PRN Reason: comfort care Last Admin: 05/19/19 21:51 Dose: 1 disk Discontinued Medications Butorphanol Tartrate (Stadol) 1 mg IVPUSH Q1H PRN PRN Reason: Pain Fentanyl (Sublimaze) Confirm Administered Dose 100 mcg .ROUTE .STK-MED ONE Stop: 05/19/19 15:29 Lactated Ringer's (Ringers, Lactated) 1,000 mls @ 150 mls/hr IV ASDIRECTED KADE Last Admin: 05/19/19 14:26 Dose: 999 mls/hr Oxytocin/Sodium Chloride (Oxytocin 30 Unit/500 Ml-Ns) 30 unit in 500 mls @ 500 mls/hr IV TITRATE KADE Oxytocin/Sodium Chloride (Oxytocin 30 Unit/500 Ml-Ns) 30 unit in 500 mls @ 2 mls/hr IV TITRATE KADE; Protocol Ropivacaine (Naropin 0.2%) Confirm Administered Dose 100 mls @ as directed .ROUTE .STK-MED ONE Stop: 05/19/19 15:29 Lidocaine HCl (Xylocaine 1%) 50 ml INJECT ONETIME PRN PRN Reason: Laceration repair Misoprostol (Cytotec) 25 mcg VAG ONETIME PRN PRN Reason: Cervical Ripening Last Admin: 05/19/19 01:15 Dose: 25 mcg Misoprostol (Cytotec) 25 mcg VAG Q4H PRN PRN Reason: Cervical Ripening Last Admin: 05/19/19 10:35 Dose: 25 mcg Misoprostol (Cytotec) 25 mcg PO ONETIME ONE Stop: 05/19/19 00:28 Last Admin: 05/19/19 01:18 Dose: 25 mcg Nalbuphine HCl (Nubain) 10 mg IVPUSH Q1H PRN PRN Reason: Pain (severe 7-10) Ondansetron HCl (Zofran) 4 mg IVPUSH Q6H PRN PRN Reason: Nausea/Vomiting Sterile Water (Sterile Water For Irrigation) 1,000 ml IRR ASDIRECTED PRN PRN Reason: delivery Terbutaline Sulfate (Brethine) 0.25 mg SUBCUT ASDIRECTED PRN PRN Reason: Tacysystole - Exam General: Reports: Alert, Oriented, Cooperative, No Acute Distress Lungs: Reports: Clear to Auscultation, Normal Respiratory Effort Cardiovascular: Reports: Regular Rate, Regular Rhythm GI/Abdominal Exam: Normal Bowel Sounds, Soft, Non-Tender (Female) Exam: Deferred, Uterine Tenderness, Vaginal Bleeding Rectal (Female) Exam: Deferred Back Exam: Reports: Full Range of Motion Extremities: Normal Inspection, Normal Range of Motion, Non-Tender, No Pedal Edema, Normal Capillary Refill Skin: Reports: Warm, Dry, Intact Neurological: Reports: No New Focal Deficit, Normal Gait, Normal Speech, Normal Tone Psy/Mental Status: Reports: Alert, Normal Affect, Normal Mood
[2019-05-20] MEDS: Ibuprofen 800 MG Tab PO PRN (12:11)
[2019-05-20] MEDS: Witch Hazel Medicated Pads 40/Jar TOP PRN (12:22)
[2019-05-20 16:51] VITALS: BP 131/74; PULSE 68
== END 2019-05-20 19:10 | disposition home or self-care (01) | DRG 560 ==
LOC: MW.OBCHECK 00:07 → MW.OB 00:08 → OBSVTOIN 16:45 → MW.OB 17:00
PROVIDERS: ADMIT Obstetrics & Gynecology; ATTEND Obstetrics & Gynecology
PROC: 10E0XZZ Delivery of Products of Conception, External Approach (ICD-10-PCS; principal; 2019-05-19)
PROC: 3E0P7VZ Introduction of Hormone into Female Reproductive, Via Natural or Artificial Opening (ICD-10-PCS; 2019-05-19)
PROC: 3E0R3BZ Introduction of Anesthetic Agent into Spinal Canal, Percutaneous Approach (ICD-10-PCS; 2019-05-19)
PROC: 00HU33Z Insertion of Infusion Device into Spinal Canal, Percutaneous Approach (ICD-10-PCS; 2019-05-19)
DX: O99.284 Endocrine, nutritional and metabolic diseases complicating childbirth (principal); E03.9 Hypothyroidism, unspecified; Z3A.39 39 weeks gestation of pregnancy; Z79.899 Other long term (current) drug therapy; Z87.891 Personal history of nicotine dependence; Z37.0 Single live birth
CPT/HCPCS: 36415; 51702; 59025; 59409; 85014; 85018; 85027; 86592; 86850; 86900; 86901; A9270-GY; J7120

== ENCOUNTER 2019-06-03 11:32 | Observation (INO) | payer BC ==
[2019-06-03] MEDS ORDERED: Sodium Chloride 0.9% 2.5 ML Syringe FLUSH PRN (11:33)
[2019-06-03] MEDS ORDERED: Ondansetron 4 MG/2 ML SDV IVPUSH PRN (11:33)
[2019-06-03] MEDS: Sodium Chloride 0.9% 1,000 ML IV SCH ×3 (12:00→22:59)
--- NOTE | 2019-06-03 12:22 | PCM.HP.2 ---
H&P History of Present Illness - General Date of Service: 06/03/19 Admit Problem/Dx: Admission Diagnosis/Problem Admission Diagnosis/Problem Mastitis in female Source of Information: Patient History Limitations: Reports: No Limitations - Related Data Allergies/Adverse Reactions: Allergies Allergy/AdvReac Type Severity Reaction Status Date / Time No Known Allergies Allergy Verified 11/17/18 22:19 Home Medications: Home Meds Levothyroxine 150 mcg PO ACBREAKFAST 05/26/15 [History] #103/Iron Fumarate/Fa [ ] 1 tab PO DAILY 11/17/18 [ History] Past Medical History - Past Health History Medical/Surgical History: Denies Medical/Surgical History HEENT History: Reports: Impaired Vision, Other (See Below) Other HEENT History: wears glasses Cardiovascular History: Reports: None Respiratory History: Reports: None Gastrointestinal History: Reports: None Genitourinary History: Reports: None 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: Musculoskeletal History: Reports: None Neurological History: Reports: Concussion, Headaches, Chronic, Migraines Psychiatric History: Reports: None Endocrine/Metabolic History: Reports: Hypothyroidism Hematologic History: Reports: None Immunologic History: Reports: None Oncologic (Cancer) History: Reports: None Dermatologic History: Reports: None - Infectious Disease History Infectious Disease History: Reports: Chicken Pox, Mononucleosis - Past Surgical History HEENT Surgical History: Reports: Other (See Below) Other HEENT Surgeries/Procedures: wisdom teeth extraction Cardiovascular Surgical History: Reports: None GI Surgical History: Reports: None Female Surgical History: Reports: Other (See Below) Other Female Surgeries/Procedures: lump removed form right breast - Past Imaging History Past Imaging History: Reports: None Social & Family History - Family History Family Medical History: Noncontributory HEENT: Reports: Glaucoma Cardiac: Reports: Heart Failure, Pacemaker, Stent Respiratory: Reports: COPD GI: Reports: None : Reports: None OBGYN: Reports: Musculoskeletal: Reports: Arthritis Neurological: Reports: CVA Psychiatric: Reports: Anxiety, Bipolar, Depression Endocrine/Metabolic: Reports: None Hematologic: Reports: None Immunologic: Reports: None Dermatologic: Reports: Psoriasis Oncologic: Reports: Breast, Other (See Below) Other Oncologic Family History: stomach - Caffeine Use Caffeine Use: Reports: Coffee Orders Last 24hrs: Active Orders 24 hr Category Date Time Status Patient Status [ADT] Routine ADT 06/03/19 11:33 Active Intake and Output [RC] QSHIFT Care 06/03/19 11:34 Active Oxygen Therapy [RC] PRN Care 06/03/19 11:33 Active Up ad Ciara [RC] ASDIRECTED Care 06/03/19 11:33 Active VTE/DVT Education [RC] PER UNIT ROUTINE Care 06/03/19 11:33 Active Vital Signs [RC] Q4H Care 06/03/19 11:33 Active Regular Diet [DIET] Diet 06/03/19 Lunch Active Breast Complete Rt [US] Urgent Exams 06/03/19 12:16 Ordered CBC WITH AUTO DIFF [HEME] Routine Lab 06/03/19 11:33 Ordered COMPREHENSIVE METABOLIC PN,CMP [CHEM] Routine Lab 06/03/19 11:33 Ordered CULTURE BLOOD [BC] Stat Lab 06/03/19 11:35 Ordered CULTURE BLOOD [BC] Stat Lab 06/03/19 11:35 Ordered Acetaminophen [Tylenol] Med 06/03/19 11:33 Active 650 mg PO Q4H PRN Ibuprofen [Motrin] Med 06/03/19 11:33 Active 600 mg PO Q6H PRN Ondansetron [Zofran] Med 06/03/19 11:33 Active 4 mg IVPUSH Q4H PRN Pharmacy to Dose - Vancomycin Med 06/03/19 11:45 Pending 1 dose .XX ASDIRECTED Sodium Chloride 0.9% [Normal Saline] 1,000 ml Med 06/03/19 11:45 Active IV ASDIRECTED Sodium Chloride 0.9% [Saline Flush] Med 06/03/19 11:33 Active 2.5 ml FLUSH ASDIRECTED PRN Blood Culture x2 Reflex Set [OM.PC] Stat Oth 06/03/19 11:33 Ordered Saline Lock Insert [OM.PC] Routine Oth 06/03/19 11:33 Ordered Resuscitation Status Routine Resus Stat 06/03/19 11:33 Ordered Medication Orders Acetaminophen (Tylenol) 650 mg PO Q4H PRN PRN Reason: Pain (Mild 1-3)/fever Sodium Chloride (Normal Saline) 1,000 mls @ 125 mls/hr IV ASDIRECTED KADE Ibuprofen (Motrin) 600 mg PO Q6H PRN PRN Reason: Pain (mild 1-3) Ondansetron HCl (Zofran) 4 mg IVPUSH Q4H PRN PRN Reason: Nausea Sodium Chloride (Saline Flush) 2.5 ml FLUSH ASDIRECTED PRN PRN Reason: Keep Vein Open Vancomycin HCl (Pharmacy To Dose - Vancomycin) 1 dose .XX ASDIRECTED KADE
[2019-06-03 12:49] LABS: BLOOD UREA NITROGEN,BUN 13 mg/dL (7.0-18.0); CARBON DIOXIDE,CO2 21.4 mmol/L (21.0-32.0); CHLORIDE,CL 101 mmol/L (98-107); GLUCOSE RANDOM 98 mg/dL (74-106); POTASSIUM,K 3.9 mmol/L (3.5-5.1); SODIUM,NA 137 mmol/L (136-145)
--- NOTE | 2019-06-03 13:25 | US ---
Right breast ultrasound: Multiple real-time images of the right breast were obtained. Comparison: No focal fluid collections are seen to indicate definite abscess at this time. Impression: 1. Nothing is seen to indicate abscess at this time. If patient continues to be symptomatic, follow-up study could be considered in 1 week. Diagnostic code #1
[2019-06-03] MEDS ORDERED: Sodium Chloride 0.9% 1,000 ML IV ONE (14:10)
--- NOTE | 2019-06-03 14:20 | PCM.HP.2 ---
H&P History of Present Illness - General Date of Service: 06/03/19 Admit Problem/Dx: Admission Diagnosis/Problem Admission Diagnosis/Problem Mastitis in female Source of Information: Patient History Limitations: Reports: No Limitations - History of Present Illness Initial Comments - Free Text/Narative: This 29 year old female with pmh of hyperthyroidism s/p radiation now hypothyroid presented to the clinic today with fevers and R breast pain. She reports the past couple days her R breast has become more and more painful and fevers started yesterday along with chills. She has been her son and pumping frequently on the R breast. She denies chest pain or cough. No URI symptoms. No abdominal pain. Low appetite and has not been drinking much. She denies diarrhea. No dysuria. She delivered on May 19, non complicated vaginal delivery. AYSHA Mendez called for admission due to fevers and mastitis for IV antibiotics. Labwork revealed mild leukocytosis at 12,000. HR 110s and BP stable. US of R breast dose not show any signs of abscess. Right Breast Pain Score (Numeric/FACES): 0 - Related Data Allergies/Adverse Reactions: Allergies Allergy/AdvReac Type Severity Reaction Status Date / Time No Known Allergies Allergy Verified 11/17/18 22:19 Home Medications: Home Meds Levothyroxine 150 mcg PO ACBREAKFAST 05/26/15 [History] #103/Iron Fumarate/Fa [ ] 1 tab PO DAILY 11/17/18 [ History] Past Medical History - Past Health History Medical/Surgical History: Denies Medical/Surgical History HEENT History: Reports: Impaired Vision, Other (See Below) Other HEENT History: wears glasses Cardiovascular History: Reports: None. Denies: CAD, High Cholesterol, [place] Respiratory History: Reports: None. Denies: Asthma Gastrointestinal History: Reports: None Genitourinary History: Reports: None [employer] History: Reports: LMP (Approximate): Other (See Below) (2 weeks post ) Musculoskeletal History: Reports: None Neurological History: Reports: Concussion, Headaches, Chronic, Migraines Psychiatric History: Reports: None Endocrine/Metabolic History: Reports: Hyperthyroidism, Hypothyroidism Hematologic History: Reports: None Immunologic History: Reports: None Oncologic (Cancer) History: Reports: None Dermatologic History: Reports: None - Infectious Disease History Infectious Disease History: Reports: Chicken Pox, Mononucleosis - Past Surgical History HEENT Surgical History: Reports: Other (See Below) Other HEENT Surgeries/Procedures: wisdom teeth extraction Cardiovascular Surgical History: Reports: None GI Surgical History: Reports: None Female Surgical History: Reports: Other (See Below) Other Female Surgeries/Procedures: lump removed form right breast - Past Imaging History Past Imaging History: Reports: None Social & Family History - Family History Family Medical History: Noncontributory HEENT: Reports: Glaucoma Cardiac: Reports: Heart Failure, Pacemaker, Stent Respiratory: Reports: COPD GI: Reports: None : Reports: None OBGYN: Reports: Musculoskeletal: Reports: Arthritis Neurological: Reports: CVA Psychiatric: Reports: Anxiety, Bipolar, Depression Endocrine/Metabolic: Reports: None Hematologic: Reports: None Immunologic: Reports: None Dermatologic: Reports: Psoriasis Oncologic: Reports: Breast, Other (See Below) Other Oncologic Family History: stomach - Tobacco Use Smoking Status *Q: Never Smoker - Caffeine Use Caffeine Use: Reports: Coffee - Alcohol Use Alcohol Use History: No - Living Situation & Occupation Living situation: Reports: , with Family H&P Review of Systems - Review of Systems: Review Of Systems: See Below General: Reports: Fever, Chills, Malaise, Decreased Appetite HEENT: Reports: No Symptoms. Denies: Headaches, Sinus Congestion, Sore Throat Pulmonary: Reports: No Symptoms. Denies: Shortness of Breath, Cough, Sputum Cardiovascular: Reports: No Symptoms. Denies: Chest Pain Gastrointestinal: Reports: No Symptoms. Denies: Abdominal Pain Genitourinary: Reports: No Symptoms. Denies: Dysuria, Frequency, Burning Skin: Reports: Erythema (pain to R breast) Neurological: Reports: No Symptoms Hematologic/Lymphatic: Reports: No Symptoms Immunologic: Reports: No Symptoms Exam - Exam Exam: See Below - Vital Signs Vital Signs: Last Vital Signs Temp 98.2 F 06/03/19 11:33 Pulse 112 H 06/03/19 11:33 Resp 16 06/03/19 11:33 BP 104/60 06/03/19 11:33 Pulse Ox 95 06/03/19 11:33 Weight: 95.481 kg - Exam General: Alert, Oriented, Cooperative HEENT: Conjunctiva Clear, Mucosa Moist & Saline, Pupils Equal Lungs: Clear to Auscultation, Normal Respiratory Effort Cardiovascular: Regular Rhythm, Tachycardia GI/Abdominal Exam: Normal Bowel Sounds, Soft, Non-Tender Extremities: Normal Inspection, Normal Range of Motion, Non-Tender, No Pedal Edema Skin: Other (Erythema, pain and heat to 6 o clock breast position. Nipple dry and cracked, slightly inverted. ) Neuro Extensive - Mental Status: Alert, Oriented x3 Neuro Extensive - Motor, Sensory, Reflexes: CN II-XII Intact Psychiatric: Alert, Normal Affect, Normal Mood - Patient Data Lab Results Last 24 hrs: Laboratory Results - last 24 hr 06/03/19 06/03/19 Range/Units 12:17 12:17 WBC 12.23 H (4.0-11.0) K/uL RBC 4.68 (4.30-5.90) M/uL Hgb 12.6 (12.0-16.0) g/dL Hct 38.4 (36.0-46.0) % MCV 82.1 (80.0-98.0) fL MCH 26.9 L (27.0-32.0) pg MCHC 32.8 (31.0-37.0) g/dL RDW Std Deviation 41.8 (28.0-62.0) fl RDW Coeff of Carmen 14 (11.0-15.0) % Plt Count 227 (150-400) K/uL MPV 8.90 (7.40-12.00) fL Neut % (Auto) 90.0 H (48.0-80.0) % Lymph % (Auto) 3.3 L (16.0-40.0) % [place] % (Auto) 5.1 (0.0-15.0) % Eos % (Auto) 1.1 (0.0-7.0) % Baso % (Auto) 0.5 (0.0-1.5) % Neut # (Auto) 11.0 H (1.4-5.7) K/uL Lymph # (Auto) 0.4 L (0.6-2.4) K/uL [place] # (Auto) 0.6 (0.0-0.8) K/uL Eos # (Auto) 0.1 (0.0-0.7) K/uL Baso # (Auto) 0.1 (0.0-0.1) K/uL Nucleated RBC % 0.0 /100WBC Nucleated RBCs # 0 K/uL Sodium 137 (136-145) mmol/L Potassium 3.9 (3.5-5.1) mmol/L Chloride 101 (98-107) mmol/L Carbon Dioxide 21.4 (21.0-32.0) mmol/L BUN 13 (7.0-18.0) mg/dL Creatinine 0.6 (0.6-1.0) mg/dL Est Cr Clr Drug Dosing TNP Estimated GFR (MDRD) > 60.0 ml/min Glucose 98 (74-106) mg/dL Calcium 9.3 (8.5-10.1) mg/dL Total Bilirubin 1.1 H (0.2-1.0) mg/dL AST 28 (15-37) IU/L ALT 55 (14-63) IU/L Alkaline Phosphatase 94 (46-116) U/L Total Protein 7.7 (6.4-8.2) g/dL Albumin 3.9 (3.4-5.0) g/dL Globulin 3.8 (2.6-4.0) g/dL Albumin/Globulin Ratio 1.0 (0.9-1.6) Result Diagrams: 06/03/19 12:17 06/03/19 12:17 Sepsis Event Note - Evaluation Sepsis Screening Result: Sepsis Risk - Focused Exam Vital Signs: Vital Signs Temp Pulse Resp BP Pulse Ox 06/03/19 11:33 98.2 F 112 H 16 104/60 95 Date Exam was Performed: 06/03/19 Time Exam was Performed: 14:15 - Problem List (1) Mastitis SNOMED Code(s): 997378623 ICD Code: N61.0 - MASTITIS WITHOUT ABSCESS Status: Acute Current Visit: Yes (2) Hypothyroidism SNOMED Code(s): 68375879 ICD Code: E03.9 - HYPOTHYROIDISM, UNSPECIFIED Status: Chronic Current Visit: Yes Problem List Initiated/Reviewed/Updated: Yes Orders Last 24hrs: Active Orders 24 hr Category Date Time Status Patient Status [ADT] Routine ADT 06/03/19 11:33 Active Intake and Output [RC] QSHIFT Care 06/03/19 11:34 Active Oxygen Therapy [RC] PRN Care 06/03/19 11:33 Active Up ad Ciara [RC] ASDIRECTED Care 06/03/19 11:33 Active VTE/DVT Education [RC] PER UNIT ROUTINE Care 06/03/19 11:33 Active Vital Signs [RC] Q4H Care 06/03/19 11:33 Active Regular Diet [DIET] Diet 06/03/19 Lunch Active BMP [BASIC METABOLIC PANEL,BMP] [CHEM] AM Lab 06/04/19 05:11 Ordered CBC WITH AUTO DIFF [HEME] AM Lab 06/04/19 05:11 Ordered CULTURE BLOOD [BC] Stat Lab 06/03/19 12:10 Received CULTURE BLOOD [BC] Stat Lab 06/03/19 12:17 Received Acetaminophen [Tylenol] Med 06/03/19 11:33 Active 650 mg PO Q4H PRN Ibuprofen [Motrin] Med 06/03/19 11:33 Active 600 mg PO Q6H PRN Ondansetron [Zofran] Med 06/03/19 11:33 Active 4 mg IVPUSH Q4H PRN Pharmacy to Dose - Vancomycin Med 06/03/19 11:45 Pending 1 dose .XX ASDIRECTED Sodium Chloride 0.9% [Normal Saline] 1,000 ml Med 06/03/19 11:45 Active IV ASDIRECTED Sodium Chloride 0.9% [Normal Saline] 1,000 ml Med 06/03/19 14:10 Ordered IV ONETIME Sodium Chloride 0.9% [Saline Flush] Med 06/03/19 11:33 Active 2.5 ml FLUSH ASDIRECTED PRN Blood Culture x2 Reflex Set [OM.PC] Stat Oth 06/03/19 11:33 Ordered Saline Lock Insert [OM.PC] Routine Oth 06/03/19 11:33 Ordered Resuscitation Status Routine Resus Stat 06/03/19 11:33 Ordered Medication Orders Acetaminophen (Tylenol) 650 mg PO Q4H PRN PRN Reason: Pain (Mild 1-3)/fever Sodium Chloride (Normal Saline) 1,000 mls @ 125 mls/hr IV ASDIRECTED KADE Sodium Chloride (Normal Saline) 1,000 mls @ 999 mls/hr IV ONETIME ONE Stop: 06/03/19 15:10 Ibuprofen (Motrin) 600 mg PO Q6H PRN PRN Reason: Pain (mild 1-3) Ondansetron HCl (Zofran) 4 mg IVPUSH Q4H PRN PRN Reason: Nausea Sodium Chloride (Saline Flush) 2.5 ml FLUSH ASDIRECTED PRN PRN Reason: Keep Vein Open Vancomycin HCl (Pharmacy To Dose - Vancomycin) 1 dose .XX ASDIRECTED KADE Assessment/Plan Comment:: This 29 year old female admitted with mastitis of R breast 1. R breast mastitis: - Start IVFs, mild dehydration due to fevers and not eating. Give 1 L NS bolus now - Vancomycin per pharmacy dosing - BC pending. - US to rule out abscess completed, no abscess noted. - No sepsis noted. - Encourage pumping and/or frequently - Tylenol and Ibuprofen for pain PRN - Cold compress PRN pain. VTE prophylaxis: SCDs Code Status: FULL CODE Dispo: 1-2 days - Mortality Measure Prognosis:: Good
[2019-06-03] MEDS ORDERED: Sodium Chloride 0.9% 0 ML ONE (15:03)
[2019-06-03] MEDS: Ibuprofen 600 MG Tab PO PRN ×2 (16:10→22:58)
[2019-06-03] MEDS ORDERED: Levothyroxine 125 MCG Tab PO SCH (21:00)
[2019-06-03] MEDS: Acetaminophen 325 MG Tab PO PRN (23:57)
[2019-06-04 06:44] LABS: BLOOD UREA NITROGEN,BUN 8 mg/dL (7.0-18.0); CARBON DIOXIDE,CO2 22.8 mmol/L (21.0-32.0); CHLORIDE,CL 109 mmol/L (98-107); GLUCOSE RANDOM 101 mg/dL (74-106); POTASSIUM,K 3.6 mmol/L (3.5-5.1); SODIUM,NA 143 mmol/L (136-145)
[2019-06-04] MEDS: Acetaminophen 325 MG Tab PO PRN ×2 (06:52→13:22)
[2019-06-04] MEDS ORDERED: Levothyroxine 125 MCG Tab PO SCH (07:30)
--- NOTE | 2019-06-04 07:31 | PCM.DCSUM1 ---
<Wilton Ureña - Last Filed: 06/04/19 07:31> Discharge Summary - Discharge Data Discharge Disposition: Home, Self-Care 01 Condition: Good - Referral to Home Health Primary Care Physician: PCP None - Discharge Plan Prescriptions/Med Rec: Clindamycin HCl 300 mg PO TID 5 Days #15 capsule Ibuprofen [Motrin] 600 mg PO Q6H PRN #20 tablet PRN Reason: Pain (Mild 1-3) Home Medications: Home Meds Levothyroxine 125 mcg PO BEDTIME 05/26/15 [History] Clindamycin HCl 300 mg PO TID 5 Days #15 capsule 06/04/19 [Rx] Ibuprofen [Motrin] 600 mg PO Q6H PRN #20 tablet 06/04/19 [Rx] - Patient Data Vitals - Most Recent: Last Vital Signs Temp 36.6 C 06/04/19 04:00 Pulse 92 06/04/19 04:00 Resp 16 06/04/19 04:00 BP 106/62 06/04/19 04:00 Pulse Ox 96 06/04/19 04:00 Weight - Most Recent: 95.481 kg I&O - Last 24 hours: Intake & Output 06/03/19 06/04/19 06/04/19 22:59 06:59 14:59 Intake Total 1550 Balance 1550 Lab Results - Last 24 hrs: Laboratory Results - last 24 hr 06/03/19 06/03/19 06/04/19 Range/Units 12:17 12:17 06:05 WBC 12.23 H 7.60 (4.0-11.0) K/uL RBC 4.68 4.20 L (4.30-5.90) M/uL Hgb 12.6 11.3 L (12.0-16.0) g/dL Hct 38.4 35.1 L (36.0-46.0) % MCV 82.1 83.6 (80.0-98.0) fL MCH 26.9 L 26.9 L (27.0-32.0) pg MCHC 32.8 32.2 (31.0-37.0) g/dL RDW Std Deviation 41.8 43.7 (28.0-62.0) fl RDW Coeff of Carmen 14 14 (11.0-15.0) % Plt Count 227 205 (150-400) K/uL MPV 8.90 9.00 (7.40-12.00) fL Neut % (Auto) 90.0 H 82.5 H (48.0-80.0) % Lymph % (Auto) 3.3 L 8.2 L (16.0-40.0) % [place] % (Auto) 5.1 4.9 (0.0-15.0) % Eos % (Auto) 1.1 3.6 (0.0-7.0) % Baso % (Auto) 0.5 0.8 (0.0-1.5) % Neut # (Auto) 11.0 H 6.3 H (1.4-5.7) K/uL Lymph # (Auto) 0.4 L 0.6 (0.6-2.4) K/uL [place] # (Auto) 0.6 0.4 (0.0-0.8) K/uL Eos # (Auto) 0.1 0.3 (0.0-0.7) K/uL Baso # (Auto) 0.1 0.1 (0.0-0.1) K/uL Nucleated RBC % 0.0 0.0 /100WBC Nucleated RBCs # 0 0 K/uL Sodium 137 (136-145) mmol/L Potassium 3.9 (3.5-5.1) mmol/L Chloride 101 (98-107) mmol/L Carbon Dioxide 21.4 (21.0-32.0) mmol/L BUN 13 (7.0-18.0) mg/dL Creatinine 0.6 (0.6-1.0) mg/dL Est Cr Clr Drug Dosing TNP Estimated GFR (MDRD) > 60.0 ml/min Glucose 98 (74-106) mg/dL Calcium 9.3 (8.5-10.1) mg/dL Total Bilirubin 1.1 H (0.2-1.0) mg/dL AST 28 (15-37) IU/L ALT 55 (14-63) IU/L Alkaline Phosphatase 94 (46-116) U/L Total Protein 7.7 (6.4-8.2) g/dL Albumin 3.9 (3.4-5.0) g/dL Globulin 3.8 (2.6-4.0) g/dL Albumin/Globulin Ratio 1.0 (0.9-1.6) 06/04/19 Range/Units 06:05 WBC (4.0-11.0) K/uL RBC (4.30-5.90) M/uL Hgb (12.0-16.0) g/dL Hct (36.0-46.0) % MCV (80.0-98.0) fL MCH (27.0-32.0) pg MCHC (31.0-37.0) g/dL RDW Std Deviation (28.0-62.0) fl RDW Coeff of Carmen (11.0-15.0) % Plt Count (150-400) K/uL MPV (7.40-12.00) fL Neut % (Auto) (48.0-80.0) % Lymph % (Auto) (16.0-40.0) % [place] % (Auto) (0.0-15.0) % Eos % (Auto) (0.0-7.0) % Baso % (Auto) (0.0-1.5) % Neut # (Auto) (1.4-5.7) K/uL Lymph # (Auto) (0.6-2.4) K/uL [place] # (Auto) (0.0-0.8) K/uL Eos # (Auto) (0.0-0.7) K/uL Baso # (Auto) (0.0-0.1) K/uL Nucleated RBC % /100WBC Nucleated RBCs # K/uL Sodium 143 (136-145) mmol/L Potassium 3.6 (3.5-5.1) mmol/L Chloride 109 H (98-107) mmol/L Carbon Dioxide 22.8 (21.0-32.0) mmol/L BUN 8 (7.0-18.0) mg/dL Creatinine 0.5 L (0.6-1.0) mg/dL Est Cr Clr Drug Dosing 171.94 Estimated GFR (MDRD) > 60.0 ml/min Glucose 101 (74-106) mg/dL Calcium 7.9 L (8.5-10.1) mg/dL Total Bilirubin (0.2-1.0) mg/dL AST (15-37) IU/L ALT (14-63) IU/L Alkaline Phosphatase (46-116) U/L Total Protein (6.4-8.2) g/dL Albumin (3.4-5.0) g/dL Globulin (2.6-4.0) g/dL Albumin/Globulin Ratio (0.9-1.6) Med Orders - Current: Current Medications Acetaminophen (Tylenol) 650 mg PO Q4H PRN PRN Reason: Pain (Mild 1-3)/fever Last Admin: 06/04/19 06:52 Dose: 650 mg Sodium Chloride (Normal Saline) 1,000 mls @ 125 mls/hr IV ASDIRECTED [facility] Last Admin: 06/03/19 22:59 Dose: 125 mls/hr Vancomycin HCl 1 gm/ Sodium (Chloride) 250 mls @ 166.667 mls/hr IV Q8H KADE Last Admin: 06/04/19 06:34 Dose: 166.667 mls/hr Ibuprofen (Motrin) 600 mg PO Q6H PRN PRN Reason: Pain (mild 1-3) Last Admin: 06/03/19 22:58 Dose: 600 mg Levothyroxine Sodium (Levothyroxine) 125 mcg PO BEDTIME [facility] Last Admin: 06/03/19 21:33 Dose: 125 mcg Ondansetron HCl (Zofran) 4 mg IVPUSH Q4H PRN PRN Reason: Nausea Sodium Chloride (Saline Flush) 2.5 ml FLUSH ASDIRECTED PRN PRN Reason: Keep Vein Open Discontinued Medications Sodium Chloride (Normal Saline) 1,000 mls @ 999 mls/hr IV ONETIME ONE Stop: 06/03/19 15:10 Last Admin: 06/03/19 14:41 Dose: 999 mls/hr Vancomycin HCl 1.25 gm/ Sodium (Chloride) 250 mls @ 166.667 mls/hr IV Q8H [facility] Sodium Chloride (Normal Saline (Advbag)) Confirm Administered Dose 250 mls @ as directed .ROUTE .STK-MED ONE Stop: 06/03/19 15:04 Last Admin: 06/03/19 21:35 Dose: Not Given Levothyroxine Sodium (Levothyroxine) 125 mcg PO ACBREAKFAST [facility] Vancomycin HCl (Pharmacy To Dose - Vancomycin) 1 dose .XX ASDIRECTED [facility] <Tricia Todd - Last Filed: 06/04/19 12:42> Discharge Summary - Hospital Course Free Text/Narrative:: This 29 year old female with PMH of hyperthyroidism s/p radiation now hypothyroid presented to the clinic today with fevers and R breast pain. She reports the past couple days her R breast has become more and more painful and fevers started yesterday along with chills. She has been her son and pumping frequently on the R breast. She denies chest pain or cough. No URI symptoms. No abdominal pain. Low appetite and has not been drinking much. She denies diarrhea. No dysuria. She delivered on May 19, non complicated vaginal delivery. AYSHA Mendez called for admission due to fevers and mastitis for IV antibiotics. Lab-work revealed mild leukocytosis at 12,000. HR 110s and BP stable. US of R breast dose not show any signs of abscess. Patient was started on IV vancomycin, blood cultures were obtained, started on IV fluids. Patients fevers resolved, her breast redness/pain improved. Patient was keen on going home the next day, patient was afebrile overnight, WBC count resolved, patient was able to breast feed more comfortably, was eating and drinking well. Blood cultures still pending, patient doesn't want to wait for the final results, low suspicion for bacteremia . Patient was discharged on oral antibiotics and recommended to fu with her OBGYN on outpatient basis. - Discharge Data Discharge Date: 06/04/19 - Referral to Home Health Primary Care Physician: PCP None - Discharge Diagnosis/Problem(s) (1) Mastitis SNOMED Code(s): 771820409 ICD Code: N61.0 - MASTITIS WITHOUT ABSCESS Status: Acute Current Visit: Yes (2) Hypothyroidism SNOMED Code(s): 66291721 ICD Code: E03.9 - HYPOTHYROIDISM, UNSPECIFIED Status: Chronic Current Visit: Yes - Discharge Summary/Plan Comment DC Time >30 min.: No - Patient Data Vitals - Most Recent: Last Vital Signs Temp 37.1 C 06/04/19 12:27 Pulse 96 06/04/19 12:27 Resp 16 06/04/19 12:27 BP 132/75 06/04/19 12:27 Pulse Ox 97 06/04/19 12:27 I&O - Last 24 hours: Intake & Output 06/03/19 06/04/19 06/04/19 22:59 06:59 14:59 Intake Total 1550 Balance 1550 Lab Results - Last 24 hrs: Laboratory Results - last 24 hr 06/03/19 06/04/19 06/04/19 Range/Units 12:17 06:05 06:05 WBC 7.60 (4.0-11.0) K/uL RBC 4.20 L (4.30-5.90) M/uL Hgb 11.3 L (12.0-16.0) g/dL Hct 35.1 L (36.0-46.0) % MCV 83.6 (80.0-98.0) fL MCH 26.9 L (27.0-32.0) pg MCHC 32.2 (31.0-37.0) g/dL RDW Std Deviation 43.7 (28.0-62.0) fl RDW Coeff of Carmen 14 (11.0-15.0) % Plt Count 205 (150-400) K/uL MPV 9.00 (7.40-12.00) fL Neut % (Auto) 82.5 H (48.0-80.0) % Lymph % (Auto) 8.2 L (16.0-40.0) % [place] % (Auto) 4.9 (0.0-15.0) % Eos % (Auto) 3.6 (0.0-7.0) % Baso % (Auto) 0.8 (0.0-1.5) % Neut # (Auto) 6.3 H (1.4-5.7) K/uL Lymph # (Auto) 0.6 (0.6-2.4) K/uL [place] # (Auto) 0.4 (0.0-0.8) K/uL Eos # (Auto) 0.3 (0.0-0.7) K/uL Baso # (Auto) 0.1 (0.0-0.1) K/uL Nucleated RBC % 0.0 /100WBC Nucleated RBCs # 0 K/uL Sodium 137 143 (136-145) mmol/L Potassium 3.9 3.6 (3.5-5.1) mmol/L Chloride 101 109 H (98-107) mmol/L Carbon Dioxide 21.4 22.8 (21.0-32.0) mmol/L BUN 13 8 (7.0-18.0) mg/dL Creatinine 0.6 0.5 L (0.6-1.0) mg/dL Est Cr Clr Drug Dosing TNP 171.94 Estimated GFR (MDRD) > 60.0 > 60.0 ml/min Glucose 98 101 (74-106) mg/dL Calcium 9.3 7.9 L (8.5-10.1) mg/dL Total Bilirubin 1.1 H (0.2-1.0) mg/dL AST 28 (15-37) IU/L ALT 55 (14-63) IU/L Alkaline Phosphatase 94 (46-116) U/L Total Protein 7.7 (6.4-8.2) g/dL Albumin 3.9 (3.4-5.0) g/dL Globulin 3.8 (2.6-4.0) g/dL Albumin/Globulin Ratio 1.0 (0.9-1.6) YANNICK Results - Last 24 hrs: Microbiology 06/03/19 12:17 Aerobic Blood Culture - Preliminary Blood - Venous - Lab Draw NO GROWTH AFTER 1 DAY Anaerobic Blood Culture - Preliminary NO GROWTH AFTER 1 DAY 06/03/19 12:10 Aerobic Blood Culture - Preliminary Blood - Venous NO GROWTH AFTER 1 DAY Anaerobic Blood Culture - Preliminary NO GROWTH AFTER 1 DAY Med Orders - Current: Current Medications Acetaminophen (Tylenol) 650 mg PO Q4H PRN PRN Reason: Pain (Mild 1-3)/fever Last Admin: 06/04/19 06:52 Dose: 650 mg Sodium Chloride (Normal Saline) 1,000 mls @ 125 mls/hr IV ASDIRECTED [facility] Last Admin: 06/04/19 09:27 Dose: 125 mls/hr Vancomycin HCl 1 gm/ Sodium (Chloride) 250 mls @ 166.667 mls/hr IV Q8H [facility] Last Admin: 06/04/19 06:34 Dose: 166.667 mls/hr Ibuprofen (Motrin) 600 mg PO Q6H PRN PRN Reason: Pain (mild 1-3) Last Admin: 06/03/19 22:58 Dose: 600 mg Levothyroxine Sodium (Levothyroxine) 125 mcg PO BEDTIME [facility] Last Admin: 06/03/19 21:33 Dose: 125 mcg Ondansetron HCl (Zofran) 4 mg IVPUSH Q4H PRN PRN Reason: Nausea Sodium Chloride (Saline Flush) 2.5 ml FLUSH ASDIRECTED PRN PRN Reason: Keep Vein Open Discontinued Medications Sodium Chloride (Normal Saline) 1,000 mls @ 999 mls/hr IV ONETIME ONE Stop: 06/03/19 15:10 Last Admin: 06/03/19 14:41 Dose: 999 mls/hr Vancomycin HCl 1.25 gm/ Sodium (Chloride) 250 mls @ 166.667 mls/hr IV Q8H [facility] Sodium Chloride (Normal Saline (Advbag)) Confirm Administered Dose 250 mls @ as directed .ROUTE .STK-MED ONE Stop: 06/03/19 15:04 Last Admin: 06/03/19 21:35 Dose: Not Given Levothyroxine Sodium (Levothyroxine) 125 mcg PO ACBREAKFAST [facility] Vancomycin HCl (Pharmacy To Dose - Vancomycin) 1 dose .XX ASDIRECTED [facility]
[2019-06-04] MEDS: Sodium Chloride 0.9% 1,000 ML IV SCH (09:27)
--- NOTE | 2019-06-04 09:57 | PCM.PN ---
- General Info Date of Service: 06/04/19 Functional Status: Reports: Pain Controlled, Tolerating Diet, Ambulating, Urinating - Review of Systems General: Reports: No Symptoms HEENT: Reports: No Symptoms Pulmonary: Reports: No Symptoms Cardiovascular: Reports: No Symptoms Gastrointestinal: Reports: No Symptoms Genitourinary: Reports: No Symptoms Musculoskeletal: Reports: No Symptoms Skin: Reports: No Symptoms Neurological: Reports: No Symptoms Psychiatric: Reports: No Symptoms Systems Review Comment:: Continues to report pain in right breast and difficulty expressing milk. - Patient Data Vitals - Most Recent: Last Vital Signs Temp 97.6 F 06/04/19 09:00 Pulse 100 06/04/19 09:00 Resp 18 06/04/19 09:00 BP 107/64 06/04/19 09:00 Pulse Ox 96 06/04/19 09:00 Weight - Most Recent: 210 lb 8 oz I&O - Last 24 Hours: Intake & Output 06/03/19 06/04/19 06/04/19 22:59 06:59 14:59 Intake Total 1550 Balance 1550 Lab Results Last 24 Hours: Laboratory Results - last 24 hr 06/03/19 06/03/19 06/04/19 Range/Units 12:17 12:17 06:05 WBC 12.23 H 7.60 (4.0-11.0) K/uL RBC 4.68 4.20 L (4.30-5.90) M/uL Hgb 12.6 11.3 L (12.0-16.0) g/dL Hct 38.4 35.1 L (36.0-46.0) % MCV 82.1 83.6 (80.0-98.0) fL MCH 26.9 L 26.9 L (27.0-32.0) pg MCHC 32.8 32.2 (31.0-37.0) g/dL RDW Std Deviation 41.8 43.7 (28.0-62.0) fl RDW Coeff of Carmen 14 14 (11.0-15.0) % Plt Count 227 205 (150-400) K/uL MPV 8.90 9.00 (7.40-12.00) fL Neut % (Auto) 90.0 H 82.5 H (48.0-80.0) % Lymph % (Auto) 3.3 L 8.2 L (16.0-40.0) % Barrow % (Auto) 5.1 4.9 (0.0-15.0) % Eos % (Auto) 1.1 3.6 (0.0-7.0) % Baso % (Auto) 0.5 0.8 (0.0-1.5) % Neut # (Auto) 11.0 H 6.3 H (1.4-5.7) K/uL Lymph # (Auto) 0.4 L 0.6 (0.6-2.4) K/uL Barrow # (Auto) 0.6 0.4 (0.0-0.8) K/uL Eos # (Auto) 0.1 0.3 (0.0-0.7) K/uL Baso # (Auto) 0.1 0.1 (0.0-0.1) K/uL Nucleated RBC % 0.0 0.0 /100WBC Nucleated RBCs # 0 0 K/uL Sodium 137 (136-145) mmol/L Potassium 3.9 (3.5-5.1) mmol/L Chloride 101 (98-107) mmol/L Carbon Dioxide 21.4 (21.0-32.0) mmol/L BUN 13 (7.0-18.0) mg/dL Creatinine 0.6 (0.6-1.0) mg/dL Est Cr Clr Drug Dosing TNP Estimated GFR (MDRD) > 60.0 ml/min Glucose 98 (74-106) mg/dL Calcium 9.3 (8.5-10.1) mg/dL Total Bilirubin 1.1 H (0.2-1.0) mg/dL AST 28 (15-37) IU/L ALT 55 (14-63) IU/L Alkaline Phosphatase 94 (46-116) U/L Total Protein 7.7 (6.4-8.2) g/dL Albumin 3.9 (3.4-5.0) g/dL Globulin 3.8 (2.6-4.0) g/dL Albumin/Globulin Ratio 1.0 (0.9-1.6) 06/04/19 Range/Units 06:05 WBC (4.0-11.0) K/uL RBC (4.30-5.90) M/uL Hgb (12.0-16.0) g/dL Hct (36.0-46.0) % MCV (80.0-98.0) fL MCH (27.0-32.0) pg MCHC (31.0-37.0) g/dL RDW Std Deviation (28.0-62.0) fl RDW Coeff of Carmen (11.0-15.0) % Plt Count (150-400) K/uL MPV (7.40-12.00) fL Neut % (Auto) (48.0-80.0) % Lymph % (Auto) (16.0-40.0) % Barrow % (Auto) (0.0-15.0) % Eos % (Auto) (0.0-7.0) % Baso % (Auto) (0.0-1.5) % Neut # (Auto) (1.4-5.7) K/uL Lymph # (Auto) (0.6-2.4) K/uL Barrow # (Auto) (0.0-0.8) K/uL Eos # (Auto) (0.0-0.7) K/uL Baso # (Auto) (0.0-0.1) K/uL Nucleated RBC % /100WBC Nucleated RBCs # K/uL Sodium 143 (136-145) mmol/L Potassium 3.6 (3.5-5.1) mmol/L Chloride 109 H (98-107) mmol/L Carbon Dioxide 22.8 (21.0-32.0) mmol/L BUN 8 (7.0-18.0) mg/dL Creatinine 0.5 L (0.6-1.0) mg/dL Est Cr Clr Drug Dosing 171.94 Estimated GFR (MDRD) > 60.0 ml/min Glucose 101 (74-106) mg/dL Calcium 7.9 L (8.5-10.1) mg/dL Total Bilirubin (0.2-1.0) mg/dL AST (15-37) IU/L ALT (14-63) IU/L Alkaline Phosphatase (46-116) U/L Total Protein (6.4-8.2) g/dL Albumin (3.4-5.0) g/dL Globulin (2.6-4.0) g/dL Albumin/Globulin Ratio (0.9-1.6) Med Orders - Current: Current Medications Acetaminophen (Tylenol) 650 mg PO Q4H PRN PRN Reason: Pain (Mild 1-3)/fever Last Admin: 06/04/19 06:52 Dose: 650 mg Sodium Chloride (Normal Saline) 1,000 mls @ 125 mls/hr IV ASDIRECTED [facility] Last Admin: 06/04/19 09:27 Dose: 125 mls/hr Vancomycin HCl 1 gm/ Sodium (Chloride) 250 mls @ 166.667 mls/hr IV Q8H [facility] Last Admin: 06/04/19 06:34 Dose: 166.667 mls/hr Ibuprofen (Motrin) 600 mg PO Q6H PRN PRN Reason: Pain (mild 1-3) Last Admin: 06/03/19 22:58 Dose: 600 mg Levothyroxine Sodium (Levothyroxine) 125 mcg PO BEDTIME [facility] Last Admin: 06/03/19 21:33 Dose: 125 mcg Ondansetron HCl (Zofran) 4 mg IVPUSH Q4H PRN PRN Reason: Nausea Sodium Chloride (Saline Flush) 2.5 ml FLUSH ASDIRECTED PRN PRN Reason: Keep Vein Open Discontinued Medications Sodium Chloride (Normal Saline) 1,000 mls @ 999 mls/hr IV ONETIME ONE Stop: 06/03/19 15:10 Last Admin: 06/03/19 14:41 Dose: 999 mls/hr Vancomycin HCl 1.25 gm/ Sodium (Chloride) 250 mls @ 166.667 mls/hr IV Q8H [facility] Sodium Chloride (Normal Saline (Advbag)) Confirm Administered Dose 250 mls @ as directed .ROUTE .STK-MED ONE Stop: 06/03/19 15:04 Last Admin: 06/03/19 21:35 Dose: Not Given Levothyroxine Sodium (Levothyroxine) 125 mcg PO ACBREAKFAST [facility] Vancomycin HCl (Pharmacy To Dose - Vancomycin) 1 dose .XX ASDIRECTED [facility] - Exam General: Alert, Oriented, Cooperative, No Acute Distress Lungs: Normal Respiratory Effort GI/Abdominal Exam: Soft, Non-Tender (Female) Exam: Deferred Back Exam: Normal Inspection, Full Range of Motion Extremities: Normal Inspection, Normal Range of Motion Skin: Warm, Dry, Intact Neurological: No New Focal Deficit, Normal Gait, Normal Speech, Normal Tone, Strength Equal Bilateral Psy/Mental Status: Alert, Normal Affect, Normal Mood Sepsis Event Note - Evaluation Sepsis Screening Result: Sepsis Risk - Focused Exam Vital Signs: Vital Signs Temp Temp Pulse Resp BP Pulse Ox 06/04/19 09:00 97.6 F 100 18 107/64 96 06/04/19 04:00 97.9 F 92 16 106/62 96 06/04/19 01:00 97.5 F 06/03/19 23:55 100.9 F H 06/03/19 23:00 102.9 F H 123 H 20 125/66 97 Date Exam was Performed: 06/04/19 Time Exam was Performed: 09:52 - Problem List Review Problem List Initiated/Reviewed/Updated: Yes - Assessment Assessment:: Patient reports feeling significant improvement since yesterday. Continues to have pain and difficulty expressing milk from right breast. Advise continued efforts to breastfeed and pump. Advise drinking a minimum of half her body weight in ounces daily. Patient reports that she will meet with Deepa Aiken, cardiology consultant after the weekend. - Plan Plan:: This 29 year old female admitted with mastitis of R breast 1. R breast mastitis: - Start IVFs, mild dehydration due to fevers and not eating. Give 1 L NS bolus now - Vancomycin per pharmacy dosing - BC pending. - US to rule out abscess completed, no abscess noted. - No sepsis noted. - Encourage pumping and/or frequently - Tylenol and Ibuprofen for pain PRN - Cold compress PRN pain. VTE prophylaxis: SCDs Code Status: FULL CODE Dispo: 1-2 days
[2019-06-04 12:27] VITALS: BP 132/75
[2019-06-04 16:53] VITALS: PULSE 102
== END 2019-06-04 17:15 | disposition home or self-care (01) ==
LOC: MW.MS 11:32
PROVIDERS: ADMIT Student in an Organized Health Care Education/Training Program; ATTEND Student in an Organized Health Care Education/Training Program
DX: O91.22 Nonpurulent mastitis associated with the puerperium (principal); O99.285 Endocrine, nutritional and metabolic diseases complicating the puerperium; E03.9 Hypothyroidism, unspecified; E86.0 Dehydration; Z79.899 Other long term (current) drug therapy; Z92.3 Personal history of irradiation
CPT/HCPCS: 36415; 76641; 80048; 80053; 85025; 87040; 96361; 96365; 96376; A9270; G0378; G0379; J3370; J7030; J7050